=== PATIENT | female | born 1965 | race Caucasian/White ===

== ENCOUNTER → 2018-01-01 13:48 | Outpatient (CLI) | payer OTHER, SELFPAY ==
--- NOTE | 2018-01-01 | DI.CT.S_ITS ---
PROCEDURE: CT ABDOMEN PELVIS WO/W CON INDICATIONS: HEMATURIA AND PELVIC PAIN TECHNIQUE: Optional 5 mm thick noncontrast images acquired from the diaphragm to the symphysis pubis. After the administration of intravenous contrast, 5 mm thick images acquired from the diaphragm to the symphysis pubis after a 10-minute delay. 2 mm thick coronal and sagittal reformats were then performed of the kidneys and ureters. For radiation dose reduction, the following was used: automated exposure control, adjustment of mA and/or kV according to patient size. COMPARISON: None. FINDINGS: Image quality: Excellent. Lung bases: Lung bases are clear. Heart size is normal. Urinary system: Both kidneys are normal in size, without hydronephrosis or nephrolithiasis on pre-contrast images. No perinephric fat stranding. There is normal bilateral renal enhancement. Renal calyces appear normal in morphology when filled with contrast. Opacified portions of both ureters demonstrate normal caliber. Bladder wall thickness is normal. No calcified bladder stones. Other solid organs: Liver is normal in size and enhancement. Gallbladder appears normal. Biliary system is non dilated. Pancreas enhances normally. Spleen is normal in size and enhancement. No adrenal nodules. Peritoneum and bowel: Bowel loops demonstrate normal wall thickness and caliber. No free fluid or air. Nodes and vessels: No retroperitoneal or mesenteric adenopathy by size criteria. Aorta and inferior vena cava are normal in size. Abdominal wall: No ventral hernias. Pelvis: No pathologic free pelvic fluid. No inguinal hernias or adenopathy. Uterus is lobulated, and appears to likely contain multiple uterine fibroids the largest of which is present at the uterine fundus, measuring up to 7.2 cm. Bones: No suspicious bony lesions. No vertebral body compression fractures. IMPRESSION: A urinary tract stone is not found, no urothelial or renal cortical mass is identified. A definite source of hematuria is not seen. Lobulated uterine contour is, suspect multiple moderate sized uterine fibroids are present in the largest fibroid is estimated to measure approximately 7.2 cm at the uterine fundus. Pelvic ultrasound is recommended for more accurate assessment. Dictated by: Chace Alfonso M.D. on 01/01/2018 at 15:04 Approved by: Chace Alfonso M.D. on 01/01/2018 at 15:09
== END ==
PROVIDERS: PCP Family Medicine; Visit Provider Internal Medicine
DX: R31.9 Hematuria, unspecified (principal); R10.2 Pelvic and perineal pain; D25.9 Leiomyoma of uterus, unspecified
CPT/HCPCS: 74178; Q9967

== ENCOUNTER 2018-03-20 22:34 | Emergency (ER) | payer OTHER, MEDICAID, SELFPAY ==
[2018-03-20 22:56] VITALS: BP 136/81; PULSE 75; RESP 16; TEMP 36.9; O2SAT 95; BMI 44.1
--- NOTE | 2018-03-20 23:54 | ED.DENTAL ---
HPI - Dental/Oral General Chief complaint: Dental/Oral Stated complaint: TOOTH PAIN Time Seen by Provider: 03/20/18 23:54 Source: patient Mode of arrival: ambulatory Limitations: no limitations History of Present Illness HPI Narrative: Patient is a 52-year-old female presenting with dental pain at tooth number 51. She always has pain and issues with this tooth. She has started noticing it yesterday she tried to get to her dentist before they close however there are any clothes. She continued to have pain today. No fevers or swelling. She typically gets antibiotics as for it. She will see her dentist next week. Related Data Home Medications Medication Instructions Recorded Confirmed hydrochlorothiazide 25 mg PO QDAY #0 12/20/12 metoprolol tartrate 50 mg PO BID #0 12/20/12 Previous Rx's Medication Instructions Recorded ketorolac 10 mg PO Q6HP PRN #15 tab 09/24/17 amoxicillin 500 mg PO TID #21 cap 03/20/18 ibuprofen 800 mg PO QID PRN #14 tab 03/20/18 Allergies Allergy/AdvReac Type Severity Reaction Status Date / Time thioridazine [From MELLARIL] Allergy Unknown Unverified 10/07/17 11:53 SULFA Allergy Unknown Uncoded 10/07/17 11:53 Review of Systems Review of Systems GENERAL: Denies chills,fever HEENT: See HPI RESPIRATORY: Denies dyspnea, cough, wheezing CARDIOVASCULAR: Denies chest pain, palpitations GASTROINTESTINAL: Denies nausea, vomiting MUSCULOSKELETAL: Denies extremity pain, injury SKIN: No rash, no laceration, no pruritus NEUROLOGIC: Denies weakness, dizziness, headache, numbness 8 point review of systems is negative except for those stated above and HPI PFSH Medical History Hypertension (Acute) Exam Initial Vital Signs Initial Vital Signs: Vital Signs Temperature 98.5 F 03/20/18 22:56 Pulse Rate 75 03/20/18 22:56 Respiratory Rate 16 03/20/18 22:56 Blood Pressure 136/81 03/20/18 22:56 Pulse Oximetry 95 03/20/18 22:56 GENERAL: Well-appearing, well-nourished and in no acute distress. MOUTH: No dental abscess few dental caries CARDIOVASCULAR: peripheral pulses in tact, cap refill <2 sec RESPIRATORY: No respiratory distress, speaks in full sentences without difficulty EXTREMITIES: Normal range of motion, no clubbing or edema. Neurovascularly intact NEUROLOGICAL: Cranial nerves II through XII grossly intact. Normal gait and speech. SKIN: Warm, dry, no petechiae, no rashes or lesions. Course Orders Ordered: Discontinued Medications Amoxicillin ( Trimox 250mg Prepack) 1 bottle MISC SEEINSTR ONE Stop: 03/20/18 23:55 Last Admin: 03/21/18 00:20 Dose: 1 bottle Ibuprofen (Advil) 800 mg PO NOW ONE Stop: 03/20/18 23:55 Last Admin: 03/21/18 00:20 Dose: 800 mg Vital Signs - 8 hr 03/20/18 22:56 03/21/18 00:33 Temperature 98.5 F 98.7 F Pulse Rate 75 70 Respiratory Rate 16 18 Blood Pressure 136/81 130/80 Pulse Oximetry 95 97 Discharge Plan Departure Patient Disposition: Home Clinical Impression: Pain, dental Discharge Date/Time: 03/21/18 00:33 Interventions: ED Discharge Assessment Last Done: 03/21/18 00:33 Instructions: DI for Dental Pain Activity Restrictions/Additional Instructions: *You have been diagnosed with dental pain *Continue to take medications as directed Amoxicillin 500 3 times a day Motrin 100 mg every 8 hr only if needed for pain *Follow up with your primary care provider in 2-3 days *Return to ER if you should have swelling, fever or any new, worsening or concerning symptoms Prescriptions: New amoxicillin 500 mg capsule 500 mg PO TID Qty: 21 RF: 0 ibuprofen 800 mg tablet 800 mg PO QID PRN (Reason: pain) Qty: 14 RF: 0 No Action metoprolol tartrate 50 MG tablet 50 mg PO BID Qty: 0 RF: 0 hydrochlorothiazide 25 MG tablet 25 mg PO QDAY Qty: 0 RF: 0 ketorolac 10 MG tablet 10 mg PO Q6HP PRNQty: 15 RF: 0
[2018-03-21] MEDS: AMOXICILLIN 250 MG PREPACK 1 BOTTLE MISC (00:20)
[2018-03-21] MEDS: IBUPROFEN 400 MG TABLET 800 MG PO (00:20)
[2018-03-21 00:33] VITALS: BP 130/80; PULSE 70; RESP 18; TEMP 37.1; O2SAT 97
--- NOTE | 2018-03-21 16:38 | PC.NURSE ---
Pt called w/ questions regarding which insurance would be billed for her ED visit. Discussed that I did not have access to that information. Offered to transfer call to registration and give business office phone number, pt declined.
== END 2018-03-21 00:33 | disposition home or self-care (01) ==
PROVIDERS: Emergency Provider Emergency Medicine; PCP Family Medicine
DX: K08.89 Other specified disorders of teeth and supporting structures (principal)
CPT/HCPCS: 99282; 99283

== ENCOUNTER 2019-03-03 19:40 | Emergency (ER) | payer OTHER, MEDICAID, SELFPAY ==
[2019-03-03 19:51] VITALS: BP 188/88; PULSE 78; RESP 17; TEMP 36.8; O2SAT 98; BMI 27.4
--- NOTE | 2019-03-03 20:24 | PC.NURSE ---
Dr Cisneros in to inject pain block. pt tolerated well. reports improved pain
[2019-03-03] MEDS: BUPIVACAINE 0.5% W/ EPI (PF) VIAL 30 ML (20:33)
[2019-03-03] MEDS: KETOROLAC 60 MG/2 ML VIAL 30 MG IM (20:33)
[2019-03-03 20:35] VITALS: BP 179/87; PULSE 64; RESP 16; O2SAT 98
--- NOTE | 2019-03-04 03:23 | ED.DENTAL ---
HPI - Dental/Oral General Chief complaint: Dental/Oral Stated complaint: TOOTH ACHE Time Seen by Provider: 03/03/19 19:40 Source: patient Mode of arrival: ambulatory Limitations: no limitations History of Present Illness HPI Narrative: 53F non smoker with history of HTN presents with worsening dental pain. She has an upcoming appointment with her dentist and was just prescribed antibiotic for a suppose dental infection. She has no fever chills nor any facial swelling. Her pain is in the left lower. She denies any injury or trauma. Related Data Home Medications Medication Instructions Recorded Confirmed hydrochlorothiazide 25 mg PO QDAY #0 12/20/12 metoprolol tartrate 50 mg PO BID #0 12/20/12 Previous Rx's Medication Instructions Recorded ketorolac 10 mg PO Q6HP PRN #15 tab 09/24/17 amoxicillin 500 mg PO TID #21 cap 03/20/18 ibuprofen 800 mg PO QID PRN #14 tab 03/20/18 ketorolac 10 mg PO TID PRN #10 tab 03/03/19 Allergies Allergy/AdvReac Type Severity Reaction Status Date / Time thioridazine [From MELLARIL] Allergy Unknown Verified 03/03/19 19:51 SULFA Allergy Unknown Uncoded 10/07/17 11:53 Review of Systems Constitutional Constitutional: Denies chills, Denies fatigue, Denies fever(s), Denies frequent falls, Denies lethargy and Denies weakness Eyes Eyes: Denies change in vision, Denies eye discharge, Denies irritation and Denies loss of vision ENT Ears, Nose, Mouth, and Throat: Denies change in voice, Reports dental pain, Denies dizziness, Denies neck pain, Denies sore throat and Denies throat swelling Cardiovascular Cardiovascular: Denies chest pain, Denies irregular heart rhythm, Denies lightheadedness, Denies palpitations, Denies dyspnea, Denies dyspnea on exertion and Denies orthopnea Respiratory Respiratory: Denies cough, Denies dyspnea, Denies dyspnea on exertion and Denies wheezing Gastrointestinal Gastrointestinal: Denies abdominal pain, Denies change in bowel habits, Denies diarrhea, Denies nausea and Denies vomiting Genitourinary Genitourinary: Denies hematuria, Denies flank pain, Denies urinary incontinence and Denies urinary urgency Musculoskeletal Musculoskeletal: Denies back pain, Denies muscle weakness, Denies neck pain, Denies numbness and Denies tingling Integumentary/Breasts Skin/Breast: Denies pruritus, Denies erythema, Denies rash and Denies wounds Neurologic Neurologic: Denies behavioral changes, Denies confusion, Denies dizziness, Denies frequent falls, Denies loss of vision, Denies numbness, Denies tingling and Denies weakness Psychiatric Psychiatric: Denies anxiety, Denies behavioral changes, Denies confusion, Denies depression, Denies homicidal ideation and Denies suicidal ideation Endocrine Endocrine: Denies fatigue, Denies flushing and Denies palpitations Hematologic/Lymphatic Hematologic/Lymphatic: Denies easy bruising Allergic/Immunologic Allergic/Immunologic: Denies urticaria, Denies throat swelling and Denies wheezing [facility] Medical History Hypertension (Acute) Social History Smoking Status: Unknown if ever smoked Social History Smoking Status: Unknown if ever smoked Exam Narrative Exam Narrative: GEN: AOx3 and in mild distress, rubbing the left side of her lower jaw EYES: Pupils are equal, round, and reactive to light and accommodation. Extraoccular muscles are intact bilaterally. There is no subconjunctival hemorrhage or exudate. ORAL: No facial swelling. No obvious dental fracture or fluctuant mass to suggest abscess CHEST: Lungs are clear to auscultation bilaterally and free of wheezes, rales, or rhonchi. Heart rate is regular rhythm, there are no murmurs, clicks, rubs, or gallops. There is no chest wall tenderness. ABD: Abdomen is soft and nontender. There is no guarding or rebound. Bowel sounds are normal in all 4 quadrants. There is no mass or organomegaly. EXT: Full painless ROM of all extremities with no loss of sensation or strength. SKIN: Warm, pink, and dry. No erythema or rash Initial Vital Signs Initial Vital Signs: Vital Signs Temperature 98.3 F 03/03/19 19:51 Pulse Rate 78 03/03/19 19:51 Respiratory Rate 17 03/03/19 19:51 Blood Pressure 188/88 H 03/03/19 19:51 Pulse Oximetry 98 03/03/19 19:51 Procedures Nerve Block Nerve Block 1: Time out performed: Yes Local Anesthetic: bupivacaine 0.5% and with epi Amount of anesthesia used (mL): 3 Intraoral Nerve Block: inferior alveolar Procedure Successful: Yes Patient Tolerated Procedure: Well Complications: none Course Orders Ordered: Discontinued Medications Ketorolac Tromethamine (Toradol) 30 mg IM NOW ONE Stop: 03/03/19 20:32 Last Admin: 03/03/19 20:33 Dose: 30 mg Documented by: JESUS Vital Signs Vital signs: Vital Signs - 8 hr 03/03/19 20:35 Pulse Rate 64 Respiratory Rate 16 Blood Pressure 179/87 H Pulse Oximetry 98 Discharge Plan Departure Patient Disposition: Home Clinical Impression: Toothache Discharge Date/Time: 03/03/19 20:37 Instructions: DI for Dental Pain Activity Restrictions/Additional Instructions: *You have been diagnosed with [dental pain] *What to do: *Take medications as directed: Your medication has been electronically transmitted to the [facility] in [place] your request. Ketorolac (Toradol) is intended to be taken instead of Motrin. Do not take them at the same time. *Follow up with your primary care provider in 2-3 days, call for an appointment. Let them know you were seen in the Emergency Department and that we ask that you be seen in follow up *Return to ER if you should have any new, worsening or concerning symptoms Prescriptions: New ketorolac 10 mg tablet 10 mg PO TID PRN (Reason: pain) Qty: 10 RF: 0 No Action metoprolol tartrate 50 MG tablet 50 mg PO BID Qty: 0 RF: 0 hydrochlorothiazide 25 MG tablet 25 mg PO QDAY Qty: 0 RF: 0 ketorolac 10 MG tablet 10 mg PO Q6HP PRNQty: 15 RF: 0 amoxicillin 500 mg capsule 500 mg PO TID Qty: 21 RF: 0 ibuprofen 800 mg tablet 800 mg PO QID PRN (Reason: pain) Qty: 14 RF: 0 Referrals: José Miguel Knapp MD [Primary Care Provider] -
== END 2019-03-03 20:37 | disposition home or self-care (01) ==
PROVIDERS: Emergency Provider Emergency Medicine; PCP Family Medicine
DX: K08.89 Other specified disorders of teeth and supporting structures (principal)
CPT/HCPCS: 96372; 99282; 99283; J1885

== ENCOUNTER → 2019-08-12 15:15 | Outpatient (CLI) | payer OTHER, SELFPAY ==
--- NOTE | 2019-08-12 | DI.MG.S_ITS ---
BILATERAL DIGITAL SCREENING MAMMOGRAM 3D/2D WITH CAD: 08/12/2019 CLINICAL: Routine screening. Comparison is made to exams dated: 07/31/2017 mammogram, 01/14/2016 mammogram, and 12/20/2012 mammogram - [facility]. The tissue of both breasts is heterogeneously dense. This may lower the sensitivity of mammography. Current study was also evaluated with a Computer Aided Detection (CAD) system. There is a 0.5 cm oval equal density asymmetry in the left breast middle depth medial region seen on the craniocaudal view only. No other significant masses, calcifications, or other findings are seen in either breast. IMPRESSION: INCOMPLETE: NEEDS ADDITIONAL IMAGING EVALUATION The 0.5 cm oval equal density asymmetry in the left breast is indeterminate. Additional views with possible ultrasound are recommended. This exam was interpreted at Station ID: [id number]. NOTE: For mammograms, a report in lay terms will be sent to the patient. Approximately 15% of breast malignancies will not be visualized mammographically. In the management of a palpable breast mass, a negative mammogram must not discourage biopsy of a clinically suspicious lesion. Electronically Signed By: Hans lofton/christina:08/12/2019 18:09:09 letter sent: Additional Imaging Needed ACR BI-RADS Category 0: Incomplete [id number]
== END ==
PROVIDERS: PCP Family Medicine; Referring Provider Family Medicine; Visit Provider Internal Medicine
DX: Z12.31 Encounter for screening mammogram for malignant neoplasm of breast (principal)
CPT/HCPCS: 77063; 77067

== ENCOUNTER → 2020-01-02 13:05 | Outpatient (CLI) | payer OTHER, SELFPAY ==
--- NOTE | 2020-01-02 | DI.MG.S_ITS ---
UNILATERAL LEFT DIGITAL DIAGNOSTIC MAMMOGRAM 3D/2D WITH ADDITIONAL VIEWS: 01/02/2020 CLINICAL: Additional evaluation requested from prior study. Comparison is made to exams dated: 08/12/2019 mammogram, 07/31/2017 mammogram, and 01/14/2016 mammogram - [facility]. The tissue of left breast is heterogeneously dense. This may lower the sensitivity of mammography. There is an oval low density asymmetry with an indistinct and circumscribed margin in the left breast anterior depth medial region seen on the craniocaudal view only. No other significant masses or calcifications are seen in the breast. IMPRESSION: INCOMPLETE: NEEDS ADDITIONAL IMAGING EVALUATION The oval low density asymmetry in the left breast is indeterminate. An ultrasound is recommended. This exam was interpreted at Station ID: [id number]. NOTE: For mammograms, a report in lay terms will be sent to the patient. Approximately 15% of breast malignancies will not be visualized mammographically. In the management of a palpable breast mass, a negative mammogram must not discourage biopsy of a clinically suspicious lesion. Electronically Signed By: Norman bustos/christina:01/02/2020 13:34:55 ACR BI-RADS Category 0: Incomplete [id number]
--- NOTE | 2020-01-02 | DI.US.S_ITS ---
LIMITED ULTRASOUND OF LEFT BREAST: 01/02/2020 CLINICAL: Patient returns today to evaluate a focal asymmetry in the left breast. Comparison is made to exams dated: 01/02/2020 mammogram, 08/12/2019 mammogram, 07/31/2017 mammogram, and 01/14/2016 mammogram - [facility]. Color flow and real-time ultrasound of the left breast inner aspect were performed on the areas of interest. There is a 0.4 cm x 0.3 cm x 0.4 cm oval cyst in the left breast at 9 o'clock middle depth. This oval cyst is hypoechoic with a well-defined boundary, internal echoes, and posterior acoustic enhancement. This likely correlates with mammography findings. Color flow imaging demonstrates that there is no vascularity present. IMPRESSION: PROBABLY BENIGN The 0.4 cm x 0.3 cm x 0.4 cm oval cyst in the left breast is consistent with a complicated cyst and is probably benign. Follow-up mammogram and ultrasound in 3 months is recommended. A follow-up mammogram and an ultrasound in 6 months is recommended to demonstrate stability. This exam was interpreted at Station ID: [id number]. Electronically Signed By: Norman Pittman M.D. ddpat/:01/02/2020 15:02:14 letter sent: Followup Recommended Ultrasound BI-RADS: 3 Probably benign
== END ==
PROVIDERS: PCP Internal Medicine; Referring Provider Internal Medicine; Visit Provider Internal Medicine
DX: R92.8 Other abnormal and inconclusive findings on diagnostic imaging of breast (principal); N60.02 Solitary cyst of left breast
CPT/HCPCS: 76642; 77065; G0279

== ENCOUNTER → 2020-01-06 13:03 | Outpatient (CLI) | payer OTHER, SELFPAY ==
--- NOTE | 2020-01-06 | DI.US.S_ITS ---
PROCEDURE: US ABDOMEN LIMITED INDICATIONS: ABN LIVER FUNC TEST TECHNIQUE: Real-time focused scanning was performed of the abdomen, with image documentation. COMPARISON: None. FINDINGS: Liver is diffusely increased in echogenicity. No focal hepatic abnormalities identified. Normal hepatic size. No gallstones identified. Normal gallbladder wall. No pericholecystic fluid. Negative sonographic Jama sign. No biliary dilatation. Pancreas not visualized. IMPRESSION: Increased hepatic echogenicity noted possibly related to hepatic steatosis but other sources of hepatocellular disease cannot be excluded. Recommend clinical correlation. Dictated by: Robinson FULLER Interpreted: Chace Alfonso MD on 01/06/2020 at 14:31 Approved by: Chace Alfonso M.D. on 01/06/2020 at 15:52
== END ==
PROVIDERS: PCP Internal Medicine; Referring Provider Internal Medicine; Visit Provider Internal Medicine
DX: R94.5 Abnormal results of liver function studies (principal)
CPT/HCPCS: 76705

== ENCOUNTER 2020-04-13 11:06 | Emergency (ER) | payer OTHER, MEDICAID, SELFPAY ==
[2020-04-13 11:08] VITALS: BP 216/97; PULSE 71; RESP 15; TEMP 36.9; O2SAT 99; BMI 44.2
--- NOTE | 2020-04-13 11:58 | ED_ITS ---
HPI - Dental/Oral <BRYAN Contreras- - Last Filed: 04/13/20 14:54> General Chief complaint: Dental/Oral Stated complaint: infected tooth Time Seen by Provider: 04/13/20 11:14 Source: patient Mode of arrival: Ambulatory Limitations: no limitations History of Present Illness HPI Narrative: The patient is a 54-year-old female nonsmoker with history of hypertension and dental pain who presents with a chief complaint a possible dental infection. She states that she had 1 tooth removed, has a broken tooth right next to it. She started having pain redness and swelling about site last night. She denies any fevers nausea vomiting or diarrhea. She has not taken anything for pain or taking ice as she is concerned about her fatty liver disease. Related Data Home Medications Medication Instructions Recorded Confirmed hydrochlorothiazide 25 mg PO QDAY #0 12/20/12 metoprolol tartrate 50 mg PO BID #0 12/20/12 Previous Rx's Medication Instructions Recorded ketorolac 10 mg PO Q6HP PRN #15 tab 09/24/17 amoxicillin 500 mg PO TID #21 cap 03/20/18 ibuprofen 800 mg PO QID PRN #14 tab 03/20/18 ketorolac 10 mg PO TID PRN #10 tab 03/03/19 ketorolac 10 mg PO TID #10 tab 04/13/20 penicillin V potassium 500 mg PO QID #40 tab 04/13/20 Allergies Allergy/AdvReac Type Severity Reaction Status Date / Time thioridazine [From MELLARIL] Allergy Unknown Verified 04/13/20 11:12 SULFA Allergy Unknown Uncoded 10/07/17 11:53 Review of Systems <KARMA Contreras - Last Filed: 04/13/20 14:54> Review of Systems Narrative: GENERAL: Denies chills, fatigue, malaise, fever, sweats. HEENT: See HPI RESPIRATORY: Denies dyspnea, cough, wheezing, hemoptysis, sputum. CARDIOVASCULAR: Denies chest pain, palpitations, orthopnea, edema, GASTROINTESTINAL: Denies nausea, vomiting, abdominal pain, diarrhea, constipation, melena. : Denies dysuria, frequency, incontinence, hematuria, urinary retention. MUSCULOSKELETAL: denies weakness, joint pain, or bony pain SKIN: Denies rash, skin lesions, or other NEUROLOGIC: Denies weakness, headache, numbness, change in speech, confusion, seizures, incoordination. PSYCHIATRIC: No concerning psychosocial issues. 12 point review of systems is negative except for those stated above Patient History <Jazmyne LONDON Moore - Last Filed: 04/13/20 14:54> Medical History (Updated 04/14/20 @ 03:28 by Juhi Lopez MD) Fatty liver (Acute) Hypertension (Acute) Social History Smoking Status: Unknown if ever smoked Smoking Status: Unknown if ever smoked alcohol intake frequency: holidays/special occasions only Substance Use Type: does not use Exam <Jazmyne LONDON Moore - Last Filed: 04/13/20 14:54> Narrative Exam Narrative: GENERAL: This is a well-nourished, well-developed patient, in no acute distress HEAD: Atraumatic. Normocephalic. No temporal or scalp tenderness. EYES: Pupils equal round and reactive. Extraocular motions intact. No scleral icterus. No injection or drainage. ENT: Nose without bleeding, purulent drainage or septal hematoma. Throat without erythema, tonsillar hypertrophy or exudate. Uvula midline. Airway patent. Poor dentition noted. Erythema foot swelling, pain to palpation around left lower molar which is broke NECK: Trachea midline. No JVD or lymphadenopathy. Supple, nontender, no meningeal signs. CARDIOVASCULAR: Regular rate and rhythm RESPIRATORY: Clear to auscultation. Breath sounds equal bilaterally. No wheezes, rales, or rhonchi. No cough. No increased respiratory effort. No accessory muscle use. GASTROINTESTINAL: Abdomen soft, non-tender, nondistended. No hepato- splenomegaly, or palpable masses. No guarding. Active bowel sounds all 4 quadrants. NEURO: AOx3. Interactive, age appropriate SKIN: No rash or erythema on visible skin Initial Vital Signs Initial Vital Signs: Vital Signs Temperature 98.4 F 04/13/20 11:08 Pulse Rate 71 04/13/20 11:08 Respiratory Rate 15 04/13/20 11:08 Blood Pressure 216/97 H 04/13/20 11:08 Pulse Oximetry 99 04/13/20 11:08 <Julia Fontana DO - Last Filed: 04/15/20 07:04> Initial Vital Signs Initial Vital Signs: Vital Signs Temperature 98.4 F 04/13/20 11:08 Pulse Rate 71 04/13/20 11:08 Respiratory Rate 15 04/13/20 11:08 Blood Pressure 216/97 H 04/13/20 11:08 Pulse Oximetry 99 04/13/20 11:08 Scores <LONDON Cnotreras - Last Filed: 04/13/20 14:54> GCS Cesario coma scale eye opening: Spontaneous [place] coma scale verbal response: Orientated [place] coma scale motor response: Obey commands Cesario coma scale total score: 15 Course <LONDON Contreras - Last Filed: 04/13/20 14:54> Orders Ordered: Discontinued Medications Ketorolac Tromethamine (Toradol) 30 mg IM NOW ONE Stop: 04/13/20 11:53 Last Admin: 04/13/20 12:05 Dose: 30 mg Documented by: ARCHANA Vital Signs Vital signs: Vital Signs - 8 hr 04/13/20 11:08 04/13/20 12:11 Temperature 98.4 F Pulse Rate 71 63 Respiratory Rate 15 16 Blood Pressure 216/97 H 171/73 H Pulse Oximetry 99 98 <Julia Fontana DO - Last Filed: 04/15/20 07:04> Orders Ordered: Discontinued Medications Ketorolac Tromethamine (Toradol) 30 mg IM NOW ONE Stop: 04/13/20 11:53 Last Admin: 04/13/20 12:05 Dose: 30 mg Documented by: ARCHANA Vital Signs Vital signs: Vital Signs - 8 hr 04/13/20 11:08 04/13/20 12:11 Temperature 98.4 F Pulse Rate 71 63 Respiratory Rate 15 16 Blood Pressure 216/97 H 171/73 H Pulse Oximetry 99 98 MDM - Dental/Oral <LONDON Contreras - Last Filed: 04/13/20 14:54> MDM Narrative Medical decision making narrative: The patient is a 54-year-old female who pr esents with a chief complaint of likely dental infection. Patient have dental infection exam, will treat with Pen-VK. Encouraged follow-up with primary care provider as well as dentist which she is trying to schedule. Patient was given Toradol and felt much improved, there for small prescription prescribed. Encouraged ice, soft foods etcetera. Patient has no questions or concerns upon discharge and states understanding return precautions of any acute concerns, signs of systemic illness as well as follow-up care with her primary care provider and dentist. Discharge Plan Departure Patient Disposition: Home Clinical Impression: Dental infection Discharge Date/Time: 04/13/20 12:30 Instructions: Tooth Abscess, DI for Dental Pain Activity Restrictions/Additional Instructions: Thank you for trusting us with your care today. I sent 2 prescriptions to [facility] pharmacy, 1 antibiotic and 1 for pain As discussed, please probiotic or yogurt with the antibiotic I have given you a prescription of Toradol. This is an NSAID. Do not combine it with other NSAIDs such as Aleve or ibuprofen. I suggest taking it with some food, as it can irritate your stomach. Please follow-up with primary care provider well as dentist in the next few days. Please come back to emergency department for any acute concerns such as high fevers, inability keep down fluids etcetera Prescriptions: New penicillin V potassium 500 mg tablet 500 mg PO QID Qty: 40 RF: 0 ketorolac 10 mg tablet 10 mg PO TID Qty: 10 RF: 0 No Action metoprolol tartrate 50 MG tablet 50 mg PO BID Qty: 0 RF: 0 hydrochlorothiazide 25 MG tablet 25 mg PO QDAY Qty: 0 RF: 0 ketorolac 10 MG tablet 10 mg PO Q6HP PRNQty: 15 RF: 0 amoxicillin 500 mg capsule 500 mg PO TID Qty: 21 RF: 0 ibuprofen 800 mg tablet 800 mg PO QID PRN (Reason: pain) Qty: 14 RF: 0 ketorolac 10 mg tablet 10 mg PO TID PRN (Reason: pain) Qty: 10 RF: 0 Referrals: Tamela Harris [Primary Care Provider] - <Julia Fontana DO - Last Filed: 04/15/20 07:04> Cosign ED Attending Silvestreature Attestation: I was immediately available in the department for consultation. Documentation has been reviewed. I agree with assessment and plan.
[2020-04-13] MEDS: KETOROLAC 60 MG/2 ML VIAL 30 MG IM (12:05)
[2020-04-13 12:11] VITALS: BP 171/73; PULSE 63; RESP 16; O2SAT 98
== END 2020-04-13 12:30 | disposition home or self-care (01) ==
PROVIDERS: Emergency Provider Nurse Practitioner Family; PCP Internal Medicine
DX: K04.7 Periapical abscess without sinus (principal)
CPT/HCPCS: 96372; 99283; J1885

== ENCOUNTER 2020-04-14 02:12 | Emergency (ER) | payer OTHER, MEDICAID, SELFPAY ==
[2020-04-14 02:21] VITALS: BP 150/72; PULSE 83; RESP 16; TEMP 37.2; O2SAT 94; BMI 44.2
--- NOTE | 2020-04-14 02:29 | ED_ITS ---
HPI - Nausea/Vomiting/Diarrhea General Chief complaint: Nausea/Vomiting/Diarrhea Stated complaint: nausea, unable to take meds Time Seen by Provider: 04/14/20 02:29 Source: patient Mode of arrival: Ambulatory Limitations: no limitations History of Present Illness HPI Narrative: 54-year-old woman presents for the 2nd time in 24 hours with left lower quadrant tooth pain. She was seen earlier today given a prescription for oral Toradol as well as antibiotics. Unfortunately when she got home the IM Toradol wore off the pain increased to the point that she was at 2 nauseated to take any of her pain medications or antibiotics and her pain and nausea is spiraling in the wrong direction. She presents again requesting anesthetic injection for the pain and a shot of antibiotics so that she does not need to worry about taking the antibiotics orally. Related Data Home Medications Medication Instructions Recorded Confirmed hydrochlorothiazide 25 mg PO QDAY #0 12/20/12 metoprolol tartrate 50 mg PO BID #0 12/20/12 Previous Rx's Medication Instructions Recorded ketorolac 10 mg PO Q6HP PRN #15 tab 09/24/17 amoxicillin 500 mg PO TID #21 cap 03/20/18 ibuprofen 800 mg PO QID PRN #14 tab 03/20/18 ketorolac 10 mg PO TID PRN #10 tab 03/03/19 ketorolac 10 mg PO TID #10 tab 04/13/20 penicillin V potassium 500 mg PO QID #40 tab 04/13/20 Allergies Allergy/AdvReac Type Severity Reaction Status Date / Time thioridazine [From MELLARIL] Allergy Unknown Verified 04/13/20 11:12 SULFA Allergy Unknown Uncoded 10/07/17 11:53 Review of Systems Review of Systems Narrative: Pertinent positive and negative findings as per HPI Remainder of review of systems is otherwise unremarkable for Constitutional: Fevers, chills, weakness ENT: No sore throat, neck pain, ear pain CV: Chest pain, palpitations, dyspnea on exertion Respiratory: Cough, wheeze, dyspnea GI: Nausea, vomiting, diarrhea, : Dysuria, hematuria, flank pain Patient History Medical History Fatty liver (Acute) Hypertension (Acute) Social History Smoking Status: Unknown if ever smoked Smoking Status: Unknown if ever smoked alcohol intake frequency: holidays/special occasions only Substance Use Type: does not use Exam Narrative Exam Narrative: General: Alert appropriate in no acute distress Oral exam: Tooth #20 is fractured and tooth #19. Is missing. No obvious abscess. Respiratory: Able to speak in full sentences, no obvious respiratory distress Skin: No obvious rashes, warm and dry Neurologic: Grossly intact no obvious asymmetries or abnormalities Psych: appropriate insight and affect, cooperative Initial Vital Signs Initial Vital Signs: Vital Signs Temperature 98.9 F 04/14/20 02:21 Pulse Rate 83 04/14/20 02:21 Respiratory Rate 16 04/14/20 02:21 Blood Pressure 150/72 H 04/14/20 02:21 Pulse Oximetry 94 04/14/20 02:21 [facility] Procedure Name of Procedure: dental block Side (if applicable): left Location: tooth #19 Technique/Description of procedure performed: periosteal injection 3cc .5%bupivaine with epi Patient tolerated procedure: Well Complications: none Course Orders Ordered: Discontinued Medications Ondansetron HCl (Zofran Odt) 4 mg SL NOW ONE Stop: 04/14/20 02:36 Last Admin: 04/14/20 02:45 Dose: 4 mg Documented by: EDIL Penicillin G Benzathine (Bicillin L-A) 1,200,000 unit IM NOW ONE Stop: 04/14/20 02:36 Last Admin: 04/14/20 02:45 Dose: 1,200,000 unit Documented by: KGLULIAG Vital Signs Vital signs: Vital Signs - 8 hr 04/14/20 02:21 Temperature 98.9 F Pulse Rate 83 Respiratory Rate 16 Blood Pressure 150/72 H Pulse Oximetry 94 MDM - Nausea/Vomiting/Diarrhea MDM Narrative Medical decision making narrative: Recurrent dental pain making nausea so bad that she is unable to take any pain medications or antibiotics to treat the dental pain. She requests a local dental block and a shot of penicillin. Both of these are facilitated after Zofran 0 DT is given to help with the nausea. Patient is safe for home discharge Discharge Plan Departure Patient Disposition: Home Clinical Impression: Dental infection Instructions: DI for Dental Pain Activity Restrictions/Additional Instructions: Sorry your hurting so much that you needed to return. With this visit your given Zofran to help with the nausea. you had a shot of penicillin G which will last for about 2 weeks. You do not need any additional antibiotics at this point I did a dental block with 3 cc of 0.5% bupivacaine with epinephrine. I hope this will last for her good at least 6 hours. Please make sure you are careful with eating and talking to the you do not bite your lip or tongue. Please follow-up with your dentist as soon as your able. I wish you well Prescriptions: No Action metoprolol tartrate 50 MG tablet 50 mg PO BID Qty: 0 RF: 0 hydrochlorothiazide 25 MG tablet 25 mg PO QDAY Qty: 0 RF: 0 ketorolac 10 MG tablet 10 mg PO Q6HP PRNQty: 15 RF: 0 amoxicillin 500 mg capsule 500 mg PO TID Qty: 21 RF: 0 ibuprofen 800 mg tablet 800 mg PO QID PRN (Reason: pain) Qty: 14 RF: 0 ketorolac 10 mg tablet 10 mg PO TID PRN (Reason: pain) Qty: 10 RF: 0 penicillin V potassium 500 mg tablet 500 mg PO QID Qty: 40 RF: 0 ketorolac 10 mg tablet 10 mg PO TID Qty: 10 RF: 0 Referrals: Tamela Harris [Primary Care Provider] -
[2020-04-14] MEDS: PENICILLIN G BENZATHINE 1,200,000 UNIT/2 ML SYRINGE 1200000 UNIT IM (02:45)
[2020-04-14] MEDS: ONDANSETRON 4 MG ODT SL (02:45)
[2020-04-14] MEDS: BUPIVACAINE 0.5% W/ EPI (PF) 30 ML VIAL (02:45)
[2020-04-14 03:47] VITALS: BP 180/78; PULSE 84; RESP 17; O2SAT 96
== END 2020-04-14 03:48 | disposition home or self-care (01) ==
PROVIDERS: Emergency Provider Emergency Medicine; PCP Internal Medicine
DX: K04.7 Periapical abscess without sinus (principal); R11.2 Nausea with vomiting, unspecified
CPT/HCPCS: 64450; 96372; 99283; J0561

== ENCOUNTER 2022-01-16 01:44 | Emergency (ER) | payer OTHER, MEDICAID, SELFPAY ==
[2022-01-16 02:00] VITALS: BP 167/72; PULSE 108; RESP 22; TEMP 38.1; O2SAT 97; BMI 46.3
[2022-01-16 02:06] VITALS: O2SAT 97
--- NOTE | 2022-01-16 02:26 | ED.SKABFB ---
HPI - Skin/Abscess/Foreign Bdy General Chief complaint: Skin/Abscess/Foreign Body Stated complaint: left leg infection x2 months Time Seen by Provider: 01/16/22 02:24 Source: patient Mode of arrival: Ambulatory Limitations: no limitations History of Present Illness HPI narrative: 56-year-old female nonsmoker with BMI 46, history of diabetes and prior skin infections presents with a chief complaint of left lower extremity pain, swelling and redness with fever over the past few days. She had been seen and evaluated about a month or 2 ago and was started on doxycycline. She states that her symptoms improved tremendously but after the 5 day course of antibiotics they have slowly returned. She denies any shaking chills nor nausea or vomiting. She has no runny nose, sore throat or cough. She has no chest pain or shortness of breath. Related Data Home Medications Medication Instructions Recorded Confirmed hydrochlorothiazide 25 mg tablet 25 mg PO QDAY ##0 12/20/12 metoprolol tartrate 50 mg tablet 50 mg PO BID ##0 12/20/12 Previous Rx's Medication Instructions Recorded ketorolac 10 mg tablet 10 mg PO Q6HP PRN #15 tabs 09/24/17 amoxicillin 500 mg capsule 500 mg PO TID #21 caps 03/20/18 ibuprofen 800 mg tablet 800 mg PO QID PRN pain #14 tabs 03/20/18 ketorolac 10 mg tablet 10 mg PO TID PRN pain #10 tabs 03/03/19 ketorolac 10 mg tablet 10 mg PO TID #10 tabs 04/13/20 penicillin V potassium 500 mg 500 mg PO QID #40 tabs 04/13/20 tablet doxycycline hyclate 100 mg tablet 100 mg PO BID #20 tabs 01/16/22 Allergies Allergy/AdvReac Type Severity Reaction Status Date / Time thioridazine [From MELLARIL] Allergy Unknown Verified 04/13/20 11:12 SULFA Allergy Unknown Uncoded 10/07/17 11:53 Review of Systems Review of Systems Narrative: GENERAL: See HPI HEENT: Denies sinus pain, ear pain, sore throat, difficulty swallowing, dizziness. RESPIRATORY: Denies dyspnea, cough, wheezing, hemoptysis, sputum. CARDIOVASCULAR: Denies chest pain, palpitations, orthopnea, edema, GASTROINTESTINAL: Denies nausea, vomiting, abdominal pain, diarrhea, constipation, melena. : Denies dysuria, frequency, incontinence, hematuria, urinary retention. MUSCULOSKELETAL: denies weakness, joint pain, or bony pain SKIN: See HPI NEUROLOGIC: Denies weakness, headache, numbness, change in speech, confusion, seizures, incoordination. PSYCHIATRIC: No concerning psychosocial issues. 12 point review of systems is negative except for those stated above Patient History Medical History (Updated 01/16/22 @ 03:27 by Kevin Cisneros DO) Fatty liver Hypertension Social History Smoking Status: Never smoker Smoking Status: Never smoker alcohol intake frequency: holidays/special occasions only Substance Use Type: does not use Exam Narrative Exam Narrative: GENERAL: [56] year old patient appears stated age. Well-developed patient, in mild distress. HEAD: Atraumatic. Normocephalic. EYES: Pupils equal round and reactive. Extraocular motions intact. No scleral icterus. No injection or drainage. ENT: Nose without bleeding, purulent drainage. Throat without erythema, tonsillar hypertrophy or exudate. Airway patent. NECK: Trachea midline. Non tender CARDIOVASCULAR: Tachycardic but regular rhythm without murmurs, gallops, or rubs. RESPIRATORY: Clear to auscultation. Breath sounds equal bilaterally. No wheezes, rales, or rhonchi. GASTROINTESTINAL: Abdomen soft, non-tender, nondistended. EXTREMITIES: Bilateral lower extremity edema, left greater than right with circumferential erythema and warmth BACK: Nontender without deformity or crepitance. No flank tenderness. NEURO: AOx3. SKIN: No rash or erythema of visible areas Initial Vital Signs Initial Vital Signs: Vital Signs Temperature 100.6 F H 01/16/22 02:00 Pulse Rate 108 H 01/16/22 02:00 Respiratory Rate 22 01/16/22 02:00 Blood Pressure 167/72 H 01/16/22 02:00 Pulse Oximetry 97 01/16/22 02:00 Oxygen Delivery Method 01/16/22 02:00 Course Orders Ordered: ED Orders 01/16/22 02:39 Complete Blood Count AUTO DIFF Stat Comprehensive Metabolic Panel Stat Lactate (Lactic Acid) Stat 01/16/22 02:55 Blood Culture Stat Sodium Chloride (Normal Saline 0.9%) 1,000 mls @ 1,000 mls/hr IV BOLUS ONE Stop: 01/16/22 03:32 Last Admin: 01/16/22 02:41 Dose: 1,000 mls/hr Documented By: HENNY Discontinued Medications Doxycycline Hyclate (Doxycycline Hyclate 100 Mg Tablet) 100 mg PO NOW ONE Stop: 01/16/22 03:26 Ketorolac Tromethamine (Ketorolac 30 Mg/Ml Vial) 15 mg IV NOW ONE Stop: 01/16/22 02:34 Last Admin: 01/16/22 02:41 Dose: 15 mg Documented By: HENNY Reevaluation(s) Reevaluation #1: Patient has significant improvement after a brief rest initially and perhaps some fluids. Blood pressure down into the 120s, heart rate into the 80s and 90s, respirations into the teens. Labs are very reassuring, no indication for admission. Return precautions discussed and questions answered to her apparent satisfaction Vital Signs Vital signs: Vital Signs - 8 hr 01/16/22 02:00 01/16/22 02:06 01/16/22 02:32 Temperature 100.6 F H Pulse Rate 108 H Respiratory Rate 22 Blood Pressure 167/72 H Pulse Oximetry 97 97 95 Oxygen Delivery Method Room Air 01/16/22 03:21 Temperature Pulse Rate 91 H Respiratory Rate 18 Blood Pressure 123/56 L Pulse Oximetry 99 Oxygen Delivery Method Room Air MDM - Skin/Abscess/Foreign Bdy Lab Data Result diagrams: 01/16/22 02:39 01/16/22 02:39 Labs: Lab Results 01/16/22 01/16/22 01/16/22 Range/Units 02:39 02:39 02:39 WBC 7.7 (4.5-11.0) X10^3/uL RBC 4.81 (4.0-5.2) X10^6/uL Hgb 13.6 (12.0-16.0) g/dL Hct 39.8 (36-46) % MCV 82.8 (80-100) fL MCH 28.2 (26-34) PG MCHC 34.1 (30-36) % RDW 15.1 H (11.6-14.8) % Plt Count 238 (150-400) X10^3/uL Neut % (Auto) 89.6 H (50-75) % Lymph % (Auto) 5.5 L (25-40) % [place] % (Auto) 4.0 (3-14) % Eos % (Auto) 0.5 L (2-4) % Baso % (Auto) 0.4 (0-2) % Neut # (Auto) 6900 (8317-9653) /uL Lymph # (Auto) 400 L (9950-7743) /uL [place] # (Auto) 300 (0-900) /uL Eos # (Auto) 0 (0-450) /uL Baso # (Auto) 0 (0-100) /uL Sodium 138 (137-145) mmol/L Potassium 4.1 (3.4-5.1) mmol/L Chloride 100 (98-107) mmol/L Carbon Dioxide 29 (22-32) mmol/L BUN 10 (7-17) mg/dL Creatinine 0.80 (0.52-1.04) mg/dL Estimated GFR > 60 (>60) mL/min BUN/Creatinine Ratio 12.5 (6-22) Glucose 188 H (70-100) mg/dL Lactate 1.9 (0.7-2.1) mmol/L Calcium 9.5 (8.4-10.2) mg/dL Total Bilirubin 1.2 (0.2-1.3) mg/dL AST 27 (14-36) IU/L ALT 37 H (<35) IU/L Alkaline Phosphatase 100 (38-126) U/L Total Protein 7.9 (6.3-8.2) g/dL Albumin 4.4 (3.5-5.0) g/dL Globulin 3.5 (1.7-4.1) g/dL Albumin/Globulin Ratio 1.3 (1.0-2.8) Discharge Plan Departure Patient Disposition: Home Clinical Impression: Cellulitis Instructions: DI for Cellulitis -- Adult Activity Restrictions/Additional Instructions: *You have been diagnosed with [left lower extremity cellulitis] *What to do: *Please continue to take your regular medications as directed. [ x] New medication prescriptions sent to your pharmacy: [ [facility]] [ ] New medication written as a paper prescription [ ] No new medications given *Please follow up with your primary care provider in 2-3 days, call for an appointment. Let them know you were seen in the Emergency Department and that we ask that you be seen in follow up. We will electronically transmit a record of today's note if your PCP is in our system *If you do not have a primary care provider please contact the [facility] Resource line at [phone]. They will ask some questions about your medical history and help get you set up with a doctor in the community. *Return to Emergency Department if you should have any new, worsening or concerning symptoms, such as [fever greater than 101 F, shaking chills, worsening pain, persistent vomiting or other bothersome symptoms] Prescriptions: New doxycycline hyclate 100 mg tablet 100 mg PO BID Qty: 20 0RF No Action metoprolol tartrate 50 MG tablet 50 mg PO BID Qty: 0 hydrochlorothiazide 25 MG tablet 25 mg PO QDAY Qty: 0 ketorolac 10 MG tablet 10 mg PO Q6HP PRNQty: 15 0RF amoxicillin 500 mg capsule 500 mg PO TID Qty: 21 0RF ibuprofen 800 mg tablet 800 mg PO QID PRN (Reason: pain) Qty: 14 0RF ketorolac 10 mg tablet 10 mg PO TID PRN (Reason: pain) Qty: 10 0RF penicillin V potassium 500 mg tablet 500 mg PO QID Qty: 40 0RF ketorolac 10 mg tablet 10 mg PO TID Qty: 10 0RF Referrals: Tamela Harris MD [Primary Care Provider] -
[2022-01-16 02:32] VITALS: O2SAT 95
[2022-01-16] MEDS: KETOROLAC 30 MG/ML VIAL 15 MG IV (02:41)
[2022-01-16] MEDS: SODIUM CHLORIDE 0.9% 1,000 ML 1000 ML IV (02:41)
[2022-01-16 02:58] LABS: Lactate (Lactic Acid) 1.9 mmol/L (0.7-2.1)
[2022-01-16 03:00] LABS: Alanine Aminotransferase 37 IU/L (<35); Albumin 4.4 g/dL (3.5-5.0); Albumin Globulin Ratio 1.3 (1.0-2.8); Alkaline Phosphatase 100 U/L (38-126); Aspartate Aminotransferase 27 IU/L (14-36); BUN Creatinine Ratio 12.5 (6-22); Bilirubin Total 1.2 mg/dL (0.2-1.3); Blood Urea Nitrogen 10 mg/dL (7-17); Calcium 9.5 mg/dL (8.4-10.2); Carbon Dioxide 29 mmol/L (22-32); Chloride 100 mmol/L (98-107); Estimated Glomerular Filt Rate > 60 mL/min (>60); Globulin 3.5 g/dL (1.7-4.1); Glucose 188 mg/dL (70-100); HEMOLYSIS < 15 (0-50); Potassium 4.1 mmol/L (3.4-5.1); Sodium 138 mmol/L (137-145); Total Protein 7.9 g/dL (6.3-8.2)
[2022-01-16 03:12] LABS: Add Manual Diff / Slide Review NO; Basophils Absolute Auto 0 /uL (0-100); Basophils Percent Auto 0.4 % (0-2); Eosinophils Absolute Auto 0 /uL (0-450); Eosinophils Percent Auto 0.5 % (2-4); Hematocrit 39.8 % (36-46); Hemoglobin 13.6 g/dL (12.0-16.0); Lymphocytes Absolute Auto 400 /uL (1100-4500); Lymphocytes Percent Auto 5.5 % (25-40); Mean Corpuscular HGB Conc 34.1 % (30-36); Mean Corpuscular Hemoglobin 28.2 PG (26-34); Mean Corpuscular Volume 82.8 fL (80-100); Monocytes Absolute Auto 300 /uL (0-900); Neutrophils Absolute Auto 6900 /uL (1500-7000); Neutrophils Percent Auto 89.6 % (50-75); Platelet Count 238 X10^3/uL (150-400); Red Blood Cell Count 4.81 X10^6/uL (4.0-5.2); Red Cell Distribution Width 15.1 % (11.6-14.8); White Blood Cell Count 7.7 X10^3/uL (4.5-11.0)
[2022-01-16 03:21] VITALS: BP 123/56; PULSE 91; RESP 18; O2SAT 99
[2022-01-16] MEDS: DOXYCYCLINE HYCLATE 100 MG TABLET PO (03:45)
[2022-01-16 03:52] VITALS: BP 137/60; PULSE 100; RESP 20; O2SAT 96
== END 2022-01-16 03:55 | disposition home or self-care (01) ==
PROVIDERS: Emergency Provider Emergency Medicine; PCP Internal Medicine
DX: L03.116 Cellulitis of left lower limb (principal)
CPT/HCPCS: 36415; 80053; 83605; 85025; 87040; 96361; 96374; 99284; J1885

== ENCOUNTER 2023-09-19 18:14 | Emergency (ER) | payer OTHER, SELFPAY ==
[2023-09-19 18:29] VITALS: PULSE 81; O2SAT 97
[2023-09-19 18:30] VITALS: BP 169/77; PULSE 78; O2SAT 97
[2023-09-19 18:32] VITALS: BP 169/77; PULSE 77; RESP 24; TEMP 36.9; O2SAT 94; BMI 45.4
[2023-09-19 20:17] VITALS: BP 147/67; PULSE 88; RESP 14; TEMP 37; O2SAT 98
[2023-09-19 21:01] LABS: Appearance Urine UA CLOUDY; Bilirubin Urine UA NEGATIVE (NEGATIVE); Color Urine UA RED; Glucose Urine UA 2+ g/dL (Negative); Ketones Urine UA NEGATIVE (NEGATIVE); Leukocyte Esterase Urine UA TRACE (NEGATIVE); Nitrite Urine UA NEGATIVE (Negative); Occult Blood Urine UA 3+ (Negative); Protein Urine UA 2+ (Negative)
[2023-09-19 21:03] LABS: pH Urine UA 7.5 (4.5-8.0)
[2023-09-19 21:04] LABS: Bacteria Urine None Seen; Culture Indicated Urine Specimen Cultured; RBC Urine >100/HPF (0-5/HPF); Squamous Epithelial Cell Urine 1-5 /HPF (0-5/HPF); Urine Volume 10mL (spun); WBC Urine 10-30/HPF (0-5/HPF)
--- NOTE | 2023-09-20 00:52 | ED_ITS ---
HPI - Extremity Injury (Lower) General Chief Complaint: Extremity Injury, Lower Stated Complaint: pain in lower lt abd, difficulty breathing Time Seen by Provider: 09/19/23 20:48 Source: patient Mode of arrival: Ambulatory History of Present Illness HPI Narrative: Patient 58-year-old female without significant past medical history presenting today with pain in her abdomen. She reports that she has some urinary incontinence this morning she was trying to get to the restroom she could not quite get there but she was wearing a depends any way. While she was straining to the restroom she may have tripped and then she was upset that she had a little bit of an accident so she kept her pants. She reports that similar in her abdomen and groin area she has had some pain and discomfort since the incident. She noticed that it hurt to poop at home and bear down so she was quite worried and came in. He has no other symptoms. No nausea no vomiting no fever, no painful frequent urination. Related Data Home Medications Medication Instructions Recorded Confirmed hydrochlorothiazide 25 mg tablet 25 mg PO QDAY ##0 12/20/12 metoprolol tartrate 50 mg tablet 50 mg PO BID ##0 12/20/12 Previous Rx's Medication Instructions Recorded ketorolac 10 mg tablet 10 mg PO Q6HP PRN #15 tabs 09/24/17 amoxicillin 500 mg capsule 500 mg PO TID #21 caps 03/20/18 ibuprofen 800 mg tablet 800 mg PO QID PRN pain #14 tabs 03/20/18 ketorolac 10 mg tablet 10 mg PO TID PRN pain #10 tabs 03/03/19 ketorolac 10 mg tablet 10 mg PO TID #10 tabs 04/13/20 penicillin V potassium 500 mg 500 mg PO QID #40 tabs 04/13/20 tablet doxycycline hyclate 100 mg tablet 100 mg PO BID #20 tabs 01/16/22 Allergies Allergy/AdvReac Type Severity Reaction Status Date / Time bupropion [From Wellbutrin] Allergy Severe Hypotension Verified 09/19/23 18:32 thioridazine [From MELLARIL] Allergy Unknown Verified 04/13/20 11:12 narcotics Allergy Unknown Uncoded 09/19/23 18:32 SULFA Allergy Unknown Uncoded 10/07/17 11:53 Patient History Medical History (Updated 09/19/23 @ 21:39 by Julia Fontana DO) Fatty liver Hypertension Social History Smoking Status: Former smoker Smoking Status: Former smoker alcohol intake frequency: holidays/special occasions only Substance Use Type: does not use Exam Initial Vital Signs Initial Vital Signs: Vital Signs Pulse Rate 81 09/19/23 18:29 Pulse Oximetry 97 09/19/23 18:29 GENERAL: Well-appearing, well-nourished and in no acute distress. CARDIOVASCULAR: peripheral pulses in tact, cap refill <2 sec RESPIRATORY: No respiratory distress, speaks in full sentences without difficulty ABDOMEN: Soft, nontender, no guarding or rebound, minimal tenderness no guarding no rebound in the left lower quadrant no real groin pain EXTREMITIES: Normal range of motion, no clubbing or edema. Neurovascularly intact NEUROLOGICAL: Cranial nerves II through XII grossly intact. Normal gait and speech. SKIN: Warm, dry, no petechiae, no rashes or lesions. Course Orders Ordered: ED Orders 09/19/23 20:45 UA Complete [Urinalysis and Microscopic] Stat Urine Culture Stat Vital Signs Vital signs: Vital Signs - 8 hr 09/19/23 18:29 09/19/23 18:30 09/19/23 18:30 Temperature Pulse Rate 81 78 Respiratory Rate Blood Pressure 169/77 H Pulse Oximetry 97 97 Oxygen Delivery Method 09/19/23 18:32 09/19/23 20:17 Temperature 98.5 F 98.6 F Pulse Rate 77 88 Respiratory Rate 24 14 Blood Pressure 169/77 H 147/67 H Pulse Oximetry 94 98 Oxygen Delivery Method Room Air Room Air MDM - Extremity Injury (Lower) Lab Data Labs: Lab Results 09/19/23 Range/Units 20:45 Urine Color Red Urine Appearance Cloudy Urine pH 7.5 (4.5-8.0) Ur Specific [place] 1.020 (1.000-1.035) Urine Protein 2+ H (Negative) Urine Glucose (UA) 2+ H (Negative) g/dL Urine Ketones Negative (NEGATIVE) Urine Occult Blood 3+ H (Negative) Urine Nitrate Negative (Negative) Urine Bilirubin Negative (NEGATIVE) Urine Urobilinogen 1.0 (0.2) E.U./dL Ur Leukocyte Esterase Trace H (NEGATIVE) Urine RBC >100/hpf H (0-5/HPF) Urine WBC 10-30/hpf H (0-5/HPF) Ur Squamous Epith Cells 1-5 /hpf (0-5/HPF) Urine Bacteria None seen (None) Ur Culture Indicated? Specimen cultured Vol Urine Centrifuged 10ml (spun) MDM Narrative Medical decision making narrative: Patient 58-year-old female presents today with lower abdominal pain after she tripped and fell this morning. She has grossly bloody urine. She says that her urine was not bloody in the toilet but the sample that she got had 1 her couple drops of blood in it. She denies any back pain. She reports that she still gets menstrual cycles but they are very irregular. She does not feel like she has a UTI. She was more concerned about the pain in her left lower quadrant. She actually was able to have bowel movement here in the ED and overall feels a lot better. She feels ready able to go home. Discussed supportive care only with her. Discharge Plan Departure Patient Disposition: Home Clinical Impression: Groin strain Instructions: Groin Strain Activity Restrictions/Additional Instructions: *You have been diagnosed with groin strain *What to do: At this time he likely strained your groin. Your urine was bloody but no obvious infection. Will wait for the culture in the next 2-3 days *Continue to take medications as directed *Follow up with your primary care provider in 2-3 days or call [phone] *Return to ER if you should have increasing pain weakness or any new, worsening or concerning symptoms Prescriptions: No Action metoprolol tartrate 50 MG tablet 50 mg PO BID Qty: 0 hydrochlorothiazide 25 MG tablet 25 mg PO QDAY Qty: 0 ketorolac 10 MG tablet 10 mg PO Q6HP PRNQty: 15 0RF doxycycline hyclate 100 mg tablet 100 mg PO BID Qty: 20 0RF amoxicillin 500 mg capsule 500 mg PO TID Qty: 21 0RF ibuprofen 800 mg tablet 800 mg PO QID PRN (Reason: pain) Qty: 14 0RF ketorolac 10 mg tablet 10 mg PO TID PRN (Reason: pain) Qty: 10 0RF penicillin V potassium 500 mg tablet 500 mg PO QID Qty: 40 0RF ketorolac 10 mg tablet 10 mg PO TID Qty: 10 0RF Referrals: Tamela Harris MD [Primary Care Provider] - Stand Alone Forms: Patient Portal/API
== END 2023-09-19 21:48 | disposition home or self-care (01) ==
PROVIDERS: Emergency Provider Emergency Medicine; PCP Internal Medicine
DX: S39.011A Strain of muscle, fascia and tendon of abdomen, initial encounter (principal); R10.32 Left lower quadrant pain; W01.0XXA Fall on same level from slipping, tripping and stumbling without subsequent striking against object, initial encounter
CPT/HCPCS: 81001; 87077; 87086; 87186; 99281; 99282

== ENCOUNTER 2023-12-28 18:34 | Emergency (ER) | payer OTHER, MEDICAID, SELFPAY ==
[2023-12-28 18:45] VITALS: BP 179/78; PULSE 79; RESP 18; TEMP 36.4; O2SAT 99; BMI 47.8
[2023-12-28 18:50] VITALS: BP 181/92; PULSE 80; RESP 19; O2SAT 96
--- NOTE | 2023-12-28 21:09 | ED_ITS ---
HPI - URI/Sore Throat General Chief Complaint: Upper Respiratory Symptoms Stated Complaint: thinks may have pneumonia Time Seen by Provider: 12/28/23 20:42 Source: patient Mode of arrival: Ambulatory History of Present Illness HPI Narrative: Patient 58-year-old female history of insulin-dependent diabetes, COPD, presenting today with cough and headache. She reports that she thinks she has pneumonia her sister was diagnosed with pneumonia today but it was viral pneumonia but she was given antibiotics. She just wants to be checked out. She has had ongoing headache for about 3 weeks she thinks she has had a sinus infection she feels like it is draining in the back of her throat and now she has a productive cough. She has not significantly short of breath she has not actually had a fever she has low-grade temp. She has albuterol nebulizer at home but does not have the tubing with a mask for it she does not know where her inhaler is. She has no chest pain. No other symptoms. Related Data Home Medications Medication Instructions Recorded Confirmed hydrochlorothiazide 25 mg tablet 25 mg PO QDAY ##0 12/20/12 metoprolol tartrate 50 mg tablet 50 mg PO BID ##0 12/20/12 Previous Rx's Medication Instructions Recorded ketorolac 10 mg tablet 10 mg PO Q6HP PRN #15 tabs 09/24/17 amoxicillin 500 mg capsule 500 mg PO TID #21 caps 03/20/18 ibuprofen 800 mg tablet 800 mg PO QID PRN pain #14 tabs 03/20/18 ketorolac 10 mg tablet 10 mg PO TID PRN pain #10 tabs 03/03/19 ketorolac 10 mg tablet 10 mg PO TID #10 tabs 04/13/20 penicillin V potassium 500 mg 500 mg PO QID #40 tabs 04/13/20 tablet doxycycline hyclate 100 mg tablet 100 mg PO BID #20 tabs 01/16/22 Allergies Allergy/AdvReac Type Severity Reaction Status Date / Time bupropion [From Wellbutrin] Allergy Severe Hypotension Verified 09/19/23 18:32 thioridazine [From MELLARIL] Allergy Unknown Verified 04/13/20 11:12 narcotics Allergy Unknown Uncoded 09/19/23 18:32 SULFA Allergy Unknown Uncoded 10/07/17 11:53 Patient History Medical History (Updated 12/28/23 @ 21:20 by Julia Fontana DO) Fatty liver Hypertension Social History Smoking Status: Former smoker Smoking Status: Former smoker alcohol intake frequency: holidays/special occasions only Substance Use Type: does not use Exam Initial Vital Signs Initial Vital Signs: Vital Signs Temperature 97.6 F 12/28/23 18:45 Pulse Rate 79 12/28/23 18:45 Respiratory Rate 18 12/28/23 18:45 Blood Pressure 179/78 H 12/28/23 18:45 Pulse Oximetry 99 12/28/23 18:45 Oxygen Delivery Method Room Air 12/28/23 18:45 GENERAL: Alert 58 old female no acute distress HEENT: Head atraumatic,EOMI, pupils reactive, face symmetric, moist mucous membranes CARDIOVASCULAR: Regular rate and rhythm without murmurs, rubs or gallops. RESPIRATORY: Breath sounds equal bilaterally, no wheezes rales or rhonchi. No wheezing speaks in full sentences EXTREMITIES: Normal range of motion, no clubbing or edema. Neurovascularly intact NEUROLOGICAL: Alert and oriented x4.Normal gait and speech. SKIN: Warm, dry, no laceration, no petechiae, no rashes or lesions. Course Orders Ordered: Discontinued Medications Albuterol (Albuterol Hfa Prepack) 1 box MISC DIRECTED ONE Stop: 12/28/23 21:11 Last Admin: 12/28/23 21:19 Dose: 1 box Documented By: PRABHU Vital Signs Vital signs: Vital Signs - 8 hr 12/28/23 21:46 Pulse Rate 82 Respiratory Rate 18 Blood Pressure 160/91 H Pulse Oximetry 98 Oxygen Delivery Method Room Air MDM - URI/Sore Throat MDM Narrative Medical decision making narrative: Patient 58-year-old female history of COPD insulin-dependent diabetes presenting today with upper respiratory like in infection. She is concerned as her sister was diagnosed with COVID viral pneumonia but put on antibiotics.On exam she has no significant shortness of breath or dyspnea. She overall appears well and nontoxic. Vitals are stable. Lung sounds are clear. She and I discussed about chest x-ray but she agrees not necessarily indicated. She has albuterol nebulizers at home but she does not have the tubing she has not sure where her albuterol went. She is given albuterol here with an inhaler and reports she has had some improvement. She denies any sort of chest pain. Multiple people with similar symptoms including a friend who is also in the emergency department with the same. #65: Appropriate Treatment for Patients with URI X The patient was diagnosed with upper respiratory infection and was not prescribed or dispensed an antibiotic. [SATISFIES MIPS PERFORMANCE] [] The patient has competing comorbid condition within the last 12 months. The comorbid condition was [] (e.g., neutropenia, cystic fibrosis, chronic bronchitis, pulmonary edema, respiratory failure, rheumatoid lung disease). [ MIPS PERFORMANCE EXCEPTION/EXCLUSION] [] The patient is already on antibiotics, or has taken them within the last 30 days. [MIPS PERFORMANCE EXCEPTION/EXCLUSION] [] The patient had a competing diagnosis of [] (e.g. acute otitis media, chronic sinusitis, cellulitis, UTI, etc.). [MIPS PERFORMANCE EXCEPTION/EXCLUSION] [] The patient was diagnosed with upper respiratory infection and was prescribed or dispensed an antibiotic. [DOES NOT SATISFY MIPS PERFORMANCE] Discharge Plan Departure Patient Disposition: Home Clinical Impression: Upper respiratory infection Instructions: DI for Viral Upper Respiratory Infection -- Adult Activity Restrictions/Additional Instructions: *You have been diagnosed with upper respiratory infection *What to do: At this time I do not believe antibiotics are indicated for you. Lung sounds were clear. No antibiotics indicated for a sinus infection. Please follow-up with your primary care provider *Continue to take medications as directed Albuterol inhaler or nebulizer every 4 hours if needed for cough or shortness of breath *Follow up with your primary care provider in 2-3 days or call [phone] *Return to ER if you should have increasing shortness of breath fever chills or any new, worsening or concerning symptoms Prescriptions: No Action metoprolol tartrate 50 MG tablet 50 mg PO BID Qty: 0 hydrochlorothiazide 25 MG tablet 25 mg PO QDAY Qty: 0 ketorolac 10 MG tablet 10 mg PO Q6HP PRNQty: 15 0RF doxycycline hyclate 100 mg tablet 100 mg PO BID Qty: 20 0RF amoxicillin 500 mg capsule 500 mg PO TID Qty: 21 0RF ibuprofen 800 mg tablet 800 mg PO QID PRN (Reason: pain) Qty: 14 0RF ketorolac 10 mg tablet 10 mg PO TID PRN (Reason: pain) Qty: 10 0RF penicillin V potassium 500 mg tablet 500 mg PO QID Qty: 40 0RF ketorolac 10 mg tablet 10 mg PO TID Qty: 10 0RF Referrals: Tamela Harris MD [Primary Care Provider] - Stand Alone Forms: Patient Portal/API
[2023-12-28] MEDS: ALBUTEROL HFA PREPACK 1 BOX MISC (21:19)
[2023-12-28 21:46] VITALS: BP 160/91; PULSE 82; RESP 18; O2SAT 98
== END 2023-12-28 21:48 | disposition home or self-care (01) ==
PROVIDERS: Emergency Provider Emergency Medicine; PCP Internal Medicine
DX: J06.9 Acute upper respiratory infection, unspecified (principal); Z87.891 Personal history of nicotine dependence
CPT/HCPCS: 99281; 99282

== ENCOUNTER 2025-01-16 14:00 | Inpatient (IN) | payer OTHER, SELFPAY ==
[2025-01-16] VITALS (24 sets, daily range): BP systolic 115–164; BP diastolic 54–84; PULSE 69–105; RESP 17–24; TEMP 36.2–36.9; O2SAT 93–99; BMI 50.3; BMI 47.8
--- NOTE | 2025-01-16 14:16 | PC.NURSE ---
As Iw as wqalking pt back to a room she stated that she has some mild chest pain and thinks it might be anxiety. She said same thing happened before. EKG was ordered.
--- NOTE | 2025-01-16 14:26 | EKG_ITS ---
[address] [address] Test Date: 2025-01-16 Pat Name: Ximena Zhang Department: Room: Gender: Female [employer]: JATINDER : 1965 Requested By: Order Number: [id number] Reading MD: Ezekiel Escobar Measurements Intervals Oliver Rate: 97 P: 48 NH: 142 QRS: 14 QRSD: 92 T: 56 QT: 334 QTc: 424 Interpretive Statements Normal sinus rhythm Cannot rule out Anterior infarct , age undetermined Electronically Signed On 01-17-2025 10:18:10 PDT by Ezekiel Escobar
--- NOTE | 2025-01-16 15:17 | DI.RAD.S_ITS ---
PROCEDURE: XR CHEST 1V INDICATIONS: suspected sepsis TECHNIQUE: One view of the chest was acquired. COMPARISON: None. FINDINGS: Surgical changes and devices: None. Lungs and pleura: Lungs are clear. No pleural effusions or pneumothorax. Mediastinum: Mediastinal contours appear normal. Heart size is normal. Bones and chest wall: No suspicious bony lesions. Overlying soft tissues appear unremarkable. IMPRESSION: No acute cardiopulmonary abnormality is seen. Dictated by: Calvin Hammond M.D. on 01/16/2025 at 16:12 Approved by: Calvin Hammond M.D. on 01/16/2025 at 16:13
[2025-01-16 15:23] LABS: Add Manual Diff / Slide Review NO; Hematocrit 35.1 % (36-46); Hemoglobin 11.8 g/dL (12.0-16.0); Lymphocytes Absolute Auto 1000 /uL (1100-4500); Mean Corpuscular HGB Conc 33.7 % (30-36); Mean Corpuscular Hemoglobin 28.4 PG (26-34); Mean Corpuscular Volume 84.5 fL (80-100); Platelet Count 399 X10^3/uL (150-400)
[2025-01-16 15:29] LABS: INR 1.0 (0.9-1.3); Prothrombin Time 11.7 SECONDS (9.4-12.5)
[2025-01-16 15:32] LABS: PTT Partial Thromboplastin Tim 28 SECONDS (25.1-36.5)
[2025-01-16 15:36] LABS: Alanine Aminotransferase 28 IU/L (<35); Albumin 3.9 g/dL (3.5-5.0); Albumin Globulin Ratio 0.9 (1.0-2.8); Alkaline Phosphatase 104 U/L (38-126); Blood Urea Nitrogen 8 mg/dL (7-17); Calcium 9.6 mg/dL (8.4-10.2); Carbon Dioxide 30 mmol/L (22-32); Chloride 100 mmol/L (98-107); Estimated Glomerular Filt Rate > 60 mL/min (>60); Globulin 4.5 g/dL (1.7-4.1); Glucose 131 mg/dL (70-99); HEMOLYSIS < 15 (0-50); Lipase 69 U/L (23-300); Potassium 4.4 mmol/L (3.4-5.1); Sodium 138 mmol/L (137-145); Total Protein 8.4 g/dL (6.3-8.2)
[2025-01-16 15:37] LABS: Lactate (Lactic Acid) 1.0 mmol/L (0.7-2.1)
[2025-01-16] MEDS: SODIUM CHLORIDE 0.9% 1,000 ML 1000 ML IV (15:51)
[2025-01-16] MEDS: PIPERACILLIN/TAZO 4.5 GM in SODIUM CHLORIDE 0.9% 100 ML IV ×2 (15:52→23:44)
[2025-01-16 15:53] LABS: Procalcitonin 0.092 ng/mL (<0.5)
[2025-01-16] MEDS: MORPHINE 4 MG/ML INJ IV (16:08)
--- NOTE | 2025-01-16 16:11 | DI.CT.S_ITS ---
PROCEDURE: CT LE LT W CON INDICATIONS: Lower leg infection TECHNIQUE: After the administration of intravenous contrast, 3 mm axial sections acquired of the left lower leg , with coronal and sagittal reformats. COMPARISON: None. FINDINGS: Image quality: Diagnostic Bones: There are knee degenerative changes. No definite osseous erosions. No displaced acute fracture or dislocation. Plantar and calcaneal enthesopathy. Prominent dorsal talar osteophyte. Soft tissues: Moderate diffuse subcutaneous fat stranding. There is also skin thickening. No drainable rim enhancing fluid collection. Nonspecific small soft tissue calcifications seen in the lower leg. IMPRESSION: No osseous erosions or displaced fracture is seen. Background degenerative changes. There is diffuse soft tissue swelling with skin thickening, worst in the lower leg representing cellulitis and/or edema. No rim enhancing fluid collections identified. Nonspecific small soft tissue calcifications are present Dictated by: Timo Steve M.D. on 01/16/2025 at 17:32 Approved by: Timo Steve M.D. on 01/16/2025 at 17:35
[2025-01-16] MEDS: VANCOMYCIN 2,000 MG/400 ML PIGGYBACK 200 MG IV (16:36)
[2025-01-16 17:19] LABS: Appearance Urine UA CLEAR; Bilirubin Urine UA NEGATIVE (NEGATIVE); Color Urine UA YELLOW; Glucose Urine UA NEGATIVE (Negative); Ketones Urine UA NEGATIVE (NEGATIVE); Leukocyte Esterase Urine UA NEGATIVE (NEGATIVE); Nitrite Urine UA NEGATIVE (Negative); Occult Blood Urine UA 3+ (Negative); Protein Urine UA TRACE (Negative); Specific Gravity Urine UA 1.015 (1.000-1.035); Urobilinogen Urine UA 1.0 E.U./dL (0.2)
[2025-01-16 17:23] LABS: pH Urine UA 7.0 (4.5-8.0)
[2025-01-16 17:25] LABS: Culture Indicated Urine Cult Not Indicated
[2025-01-16] MEDS: HYDROMORPHONE 1 MG INJ IV (17:43)
--- NOTE | 2025-01-16 18:11 | ED_ITS ---
HPI - Skin/Abscess/Foreign Bdy General Chief complaint: Skin/Abscess/Foreign Body Stated complaint: Lt leg pain Time Seen by Provider: 01/16/25 14:17 Source: patient Mode of arrival: Ambulatory Limitations: no limitations History of Present Illness HPI narrative: 59-year-old female with past medical history insulin-dependent diabetes, COPD presents to the ED with a worsening wound to the left lower leg. Patient was hospitalized at [facility] on 01/06/2025 for sepsis from pneumonia. A few days into her hospitalization, patient developed a left lower leg wound which progressive worsened, spanning from the left knee down to the left ankle. Patient had multiple bullae develop and subside. Patient was discharged home on Augmentin for 10 days. Patient completed the 10 day course, following which she was seen at a walk-in clinic at [facility], they gave her a further 10 day course of Augmentin. Patient is about to start that. Patient believes that her infection is getting better, however she has burning pain at the area of the wound. Patient presents to the ED today for some topical medications for pain relief. No fever, chills, chest pain, shortness of breath, nausea, vomiting, lightheadedness, dizziness, syncope. Related Data Home Medications ?Medication ?Instructions ?Recorded ?Confirmed hydrochlorothiazide 25 mg tablet 25 mg PO QDAY ##0 metoprolol tartrate 50 mg tablet 50 mg PO BID ##0 11/28 10/09 Previous Rx's ?Medication ?Instructions ?Recorded ketorolac 10 mg tablet 10 mg PO Q6HP PRN #15 tabs 0 09/24/17 amoxicillin 500 mg capsule 500 mg PO TID #21 caps 02/28 08/16 ibuprofen 800 mg tablet 800 mg PO QID PRN pain #14 t abs 03/20/18 ketorolac 10 mg tablet 10 mg PO TID PRN pain #10 ta bs 03/03/19 ketorolac 10 mg tablet 10 mg PO TID #10 tabs penicillin V potassium 500 mg 500 mg PO QID #40 tabs 1 tablet doxycycline hyclate 100 mg tablet 100 mg PO BID #20 ta bs 01/16/22 Allergies Allergy/AdvReac Type Severity Reaction Status Date / Time bupropion (From Wellbutrin) Allergy Severe Hypotension Verified 01/16/25 14:12 thioridazine (From MELLARIL) Allergy Unknown Verified 01/16/25 14:12 narcotics Allergy Unknown Uncoded 01/16/25 14:12 SULFA Allergy Unknown Uncoded 01/16/25 14:12 Review of Systems Constitutional Constitutional: Denies chills, Denies fatigue, Denies fever(s), Denies frequent falls, Denies lethargy and Denies weakness Eyes Eyes: Denies change in vision, Denies eye discharge, Denies irritation and Denies loss of vision ENT Ears, Nose, Mouth, and Throat: Denies change in voice, Denies dizziness, Denies neck pain, Denies sore throat and Denies throat swelling Cardiovascular Cardiovascular: Denies chest pain, Denies irregular heart rhythm, Denies lightheadedness, Denies palpitations, Denies dyspnea, Denies dyspnea on exertion and Denies orthopnea Respiratory Respiratory: Denies cough, Denies dyspnea, Denies dyspnea on exertion and Denies wheezing Gastrointestinal Gastrointestinal: Denies abdominal pain, Denies change in bowel habits, Denies diarrhea, Denies nausea and Denies vomiting Musculoskeletal Musculoskeletal: Denies neck pain and Denies numbness Integumentary/Breasts Skin/Breast: Denies pruritus, Denies erythema, Denies rash and Reports wounds Comments: left lower leg wound, burning pain Neurologic Neurologic: Denies behavioral changes, Denies confusion, Denies dizziness, Denies frequent falls, Denies loss of vision, Denies numbness and Denies weakness Psychiatric Psychiatric: Denies anxiety, Denies behavioral changes, Denies confusion, Denies depression, Denies homicidal ideation and Denies suicidal ideation Endocrine Endocrine: Denies fatigue, Denies flushing and Denies palpitations Hematologic/Lymphatic Hematologic/Lymphatic: Denies easy bruising Allergic/Immunologic Allergic/Immunologic: Denies urticaria, Denies throat swelling and Denies wheezing Patient History Medical History (Updated 01/16/25 @ 19:14 by Gabbi Soria PA-C) Fatty liver Hypertension Social History Smoking Status: Never smoker Smoking Status: Never smoker alcohol intake frequency: holidays/special occasions only Exam Narrative Exam Narrative: Const General:?cooperative, healthy appearing and comfortable [facility] Head:?normal to inspection Ears:?hearing grossly normal bilaterally Nose:?external nose normal Face and sinus:?normal facial exam and sinuses nontender Mouth:?oral mucosae normal Throat:?posterior oropharynx normal Eyes General:?appearance normal, both eyes and all related structures Neck Neck:?normal visual inspection and no lymphadenopathy noted Resp Effort & Inspection:?normal respiratory effort Auscultation:?clear to auscultation bilaterally Cardio Rate:?regular rate Rhythm:?regular rhythm Integumentary There is a circumferential, weeping leg wound, warm to the touch, from the left knee down to the left ankle. Overlying erythema, burning pain. Compartments soft. Neurovascularly intact. Neuro General:?patient alert, patient awake and patient oriented x3 Initial Vital Signs Initial Vital Signs: Vital Signs Temperature 98.4 F 01/16/25 14:04 Pulse Rate 105 H 01/16/25 14:04 Respiratory Rate 18 01/16/25 14:04 Blood Pressure 148/76 H 01/16/25 14:04 Pulse Oximetry 96 01/16/25 14:04 Oxygen Delivery Method Room Air 01/16/25 14:04 Course Orders Ordered: ED Orders 01/16/25 14:16 EKG-12 Lead Stat 01/16/25 15:10 Complete Blood Count AUTO DIFF Stat Comprehensive Metabolic Panel Stat Lactate (Lactic Acid) Stat Lipase Stat PTT Partial Thromboplastin [place] Stat Procalcitonin Stat Prothrombin Time INR Stat 01/16/25 15:17 XR chest 1V Stat 01/16/25 15:26 Blood Culture Stat 01/16/25 16:11 CT LE LT w con Stat 01/16/25 16:53 Urinalysis and Microscopic Stat Ondansetron HCl (Ondansetron 4 Mg/2 Ml Inj) 4 mg IV NOW PRN PRN Reason: Nausea And Vomiting Ondansetron HCl (Ondansetron 4 Mg Odt) 4 mg PO NOW PRN PRN Reason: Nausea And Vomiting Discontinued Medications Hydromorphone HCl (Hydromorphone 1 Mg Inj) 1 mg IV NOW ONE Stop: 01/16/25 17:31 Last Admin: 01/16/25 17:43 Dose: 1 mg Documented By: MARISELA Sodium Chloride (Normal Saline 0.9%) 1,000 mls @ 1,000 mls/hr IV BOLUS ONE Stop: 01/16/25 16:16 Last Infusion: 01/16/25 16:33 Dose: Infused Documented By: Admin: 01/16/25 15:51 Dose: 1,000 mls/hr Documented By: MARISELA Piperacillin Sod/Tazobactam (Sod 4.5 gm/ Sodium Chloride) 100 mls @ 200 mls/hr IV STAT ONE Stop: 01/16/25 15:24 Last Infusion: 01/16/25 16:32 Dose: Infused Documented By: Admin: 01/16/25 15:52 Dose: 200 mls/hr Documented By: MARISELA Vancomycin HCl/Dextrose (Vancomycin) 2,000 mg in 400 mls @ 200 mls/hr IV STAT ONE Stop: 01/16/25 17:59 Last Admin: 01/16/25 16:36 Dose: 200 mls/hr Documented By: MARISELA Morphine Sulfate (Morphine 4 Mg/Ml Inj) 4 mg IV NOW ONE Stop: 01/16/25 16:06 Last Admin: 01/16/25 16:08 Dose: 4 mg Documented By: MARISELA Vital Signs Vital signs: Vital Signs - 8 hr 01/16/25 14:04 01/16/25 15:19 01/16/25 15:30 Temperature 98.4 F Pulse Rate 105 H 95 H 92 H Respiratory Rate 18 22 22 Blood Pressure 148/76 H Pulse Oximetry 96 98 99 Oxygen Delivery Method Room Air 01/16/25 15:31 01/16/25 15:31 01/16/25 16:00 Temperature Pulse Rate 90 93 H Respiratory Rate 23 23 Blood Pressure 160/71 H Pulse Oximetry 97 98 Oxygen Delivery Method 01/16/25 16:01 01/16/25 16:01 01/16/25 16:30 Temperature Pulse Rate 91 H 89 Respiratory Rate 24 Blood Pressure 148/65 H Pulse Oximetry 98 98 Oxygen Delivery Method 01/16/25 16:30 01/16/25 17:04 01/16/25 17:06 Temperature Pulse Rate 98 H 95 H Respiratory Rate Blood Pressure 139/63 Pulse Oximetry 96 97 Oxygen Delivery Method 01/16/25 17:06 01/16/25 17:30 01/16/25 17:31 Temperature Pulse Rate 92 H Respiratory Rate Blood Pressure 164/72 H 142/65 H Pulse Oximetry 95 Oxygen Delivery Method 01/16/25 17:31 01/16/25 18:00 01/16/25 18:02 Temperature Pulse Rate 92 H 95 H 90 Respiratory Rate Blood Pressure Pulse Oximetry 96 95 97 Oxygen Delivery Method 01/16/25 18:02 01/16/25 18:30 01/16/25 18:30 Temperature Pulse Rate 86 Respiratory Rate Blood Pressure 126/61 131/63 Pulse Oximetry 93 Oxygen Delivery Method 01/16/25 19:00 Temperature Pulse Rate 71 Respiratory Rate Blood Pressure Pulse Oximetry 97 Oxygen Delivery Method MDM - Skin/Abscess/Foreign Bdy Lab Data 01/16/25 15:10 01/16/25 15:10 Labs: Lab Results 01/16/25 01/16/25 Range/Units 15:10 16:53 WBC 5.6 (4.5-11.0) X10^3/uL RBC 4.15 (4.0-5.2) X10^6/uL Hgb 11.8 L (12.0-16.0) g/dL Hct 35.1 L (36-46) % MCV 84.5 (80-100) fL MCH 28.4 (26-34) PG MCHC 33.7 (30-36) % RDW 14.9 H (11.6-14.8) % Plt Count 399 (150-400) X10^3/uL Neut % (Auto) 69.7 (50-75) % Lymph % (Auto) 18.3 L (25-40) % [place] % (Auto) 10.3 (3-14) % Eos % (Auto) 1.0 L (2-4) % Baso % (Auto) 0.7 (0-2) % Neut # (Auto) 3900 (6169-4209) /uL Lymph # (Auto) 1000 L (8202-8998) /uL [place] # (Auto) 600 (0-900) /uL Eos # (Auto) 100 (0-450) /uL Baso # (Auto) 0 (0-100) /uL PT 11.7 (9.4-12.5) SECONDS INR 1.0 (0.9-1.3) APTT 28 (25.1-36.5) SECONDS Sodium 138 (137-145) mmol/L Potassium 4.4 (3.4-5.1) mmol/L Chloride 100 (98-107) mmol/L Carbon Dioxide 30 (22-32) mmol/L BUN 8 (7-17) mg/dL Creatinine 0.82 (0.52-1.04) mg/dL Estimated GFR > 60 (>60) mL/min BUN/Creatinine Ratio 9.8 (6-22) Glucose 131 H (70-99) mg/dL Lactate 1.0 (0.7-2.1) mmol/L Calcium 9.6 (8.4-10.2) mg/dL Total Bilirubin 1.0 (0.2-1.3) mg/dL AST 25 (14-36) IU/L ALT 28 (<35) IU/L Alkaline Phosphatase 104 (38-126) U/L Total Protein 8.4 H (6.3-8.2) g/dL Albumin 3.9 (3.5-5.0) g/dL Globulin 4.5 H (1.7-4.1) g/dL Albumin/Globulin Ratio 0.9 L (1.0-2.8) Lipase 69 (23-300) U/L Procalcitonin 0.092 (<0.5) ng/mL Urine Color Yellow Urine Appearance Clear Urine pH 7.0 (4.5-8.0) Ur Specific [place] 1.015 (1.000-1.035) Urine Protein Trace H (Negative) Urine Glucose (UA) Negative (Negative) g/dL Urine Ketones Negative (NEGATIVE) Urine Occult Blood 3+ H (Negative) Urine Nitrate Negative (Negative) Urine Bilirubin Negative (NEGATIVE) Urine Urobilinogen 1.0 (0.2) E.U./dL Ur Leukocyte Esterase Negative (NEGATIVE) Urine RBC 10-30/hpf H (0-5/HPF) Urine WBC 0-1/hpf (0-5/HPF) Ur Squamous Epith Cells 5-10 /hpf H (0-5/HPF) Urine Bacteria None seen (None) Ur Culture Indicated? Cult not indicated Vol Urine Centrifuged 10ml (spun) MDM Narrative Medical decision making narrative: 59-year-old female with past medical history insulin-dependent diabetes, COPD presents to the ED with a worsening wound to the left lower leg. Concern for failure of outpatient antibiotic therapy versus sepsis versus necrotizing infection versus other. Will obtain labs, CT lower extremity, control pain. Patient triggered sepsis, sirs positive for tachycardia and tachypnea. IV fluids, vancomycin, Zosyn initiated. CT lower extremity shows no osseous erosions or displaced fracture. There is diffuse soft tissue swelling with skin thickening, worst in the lower leg representing cellulitis and/or or enema. No rim enhancing fluid collections identified. Nonspecific small soft tissue calcifications are present. WBC within normal limits at 5.6. All other labs within normal limits. Patient was given a dose of morphine, and later Dilaudid for pain control. Hospitalist was consulted regarding admission for continued IV antibiotics. Discussed findings and disposition with patient. Patient is agreeable to the plan. Patient admitted. Medical records reviewed: Yes Discharge Plan Departure Patient Disposition: Admitted As Inpatient Clinical Impression: Cellulitis Qualifiers: Site of cellulitis: extremity Site of cellulitis of extremity: lower extremity Laterality: left Qualified Code(s): L03.116 - Cellulitis of left lower limb Admit Date/Time: 01/16/25 19:15 Admit Provider: Gonzales Cook
--- NOTE | 2025-01-16 19:47 | P.HP_ITS ---
History of Present Illness History of Present Illness Date Patient Seen: 01/16/25 Time Patient Seen: 23:00 Chief complaint: Lt leg pain Narrative: 59 y/o with PMH of HTN, HLD, IDDM, [facility] and LLE [facility]ulitis - on 01/06. Discharged with 10 days of Augmentin for leg cellullitis, finished the course but leg looks worse. Presnts with large, circumferential cellulitis. Not septic. Treated with IVFs and antibiotics and admitted for LLE cellulitis. [facility] Medical History (Updated 01/17/25 @ 04:33 by Gonzales Scott MD) IDDM (insulin dependent diabetes mellitus) Obesity Fatty liver Hypertension Social History household members: family Smoking Status: Never smoker Meds Home Medications and Allergies Home Medications ?Medication ?Instructions ?Recorded ?Confirmed ?Type hydrochlorothiazide 25 mg tablet 25 mg PO QDAY PRN [place] ma ##0 12/20/12 01/16/25 History amlodipine 2.5 mg tablet 2.5 mg PO BEDTIME 01/16/25 0 01/16/25 History atorvastatin 20 mg tablet 20 mg PO BEDTIME 01/16/25 History cholecalciferol (vitamin D3) 25 25 mcg PO BEDTIME 12/2801/16/25 History mcg (1,000 unit) capsule (Vitamin D3) diphenhydramine HCl 25 mg capsule 25 mg PO Q8H PRN all ergies 01/16/25 01/16/25 History (Benadryl) insulin aspart U-100 100 unit/mL 50 unit SUBCUT DIR ECTED 01/16/25 01/16/25 History (3 mL) subcutaneous pen insulin glargine 100 unit/mL (3 50 unit SUBCUT QPM 01/16/25 History mL) subcutaneous pen ketotifen fumarate 0.025 % (0.035 1 drp EYE-BOTH DAILY PRN allergy 01/16/25 01/16/25 History %) eye drops (Allergy Eye symptoms (ketotifen)) Allergies Allergy/AdvReac Type Severity Reaction Status Date / Time bupropion (From Wellbutrin) Allergy Severe Hypotension Verified 01/16/25 14:12 thioridazine (From MELLARIL) Allergy Unknown Verified 01/16/25 14:12 narcotics Allergy Unknown Uncoded 01/16/25 14:12 SULFA Allergy Unknown Uncoded 01/16/25 14:12 Review of Systems Review of Systems Narrative: General - w/o fever or chills CVS-m w/o chest pain RS - w/o shortness of breath Ext - LLE pain, swelling, wound Exam Vital Signs (past 8 hours): - 01/16/25 14:04 01/16/25 15:19 01/16/25 15:30 Temperature 98.4 F Pulse Rate 105 H 95 H 92 H Respiratory Rate 18 22 22 Blood Pressure 148/76 H Pulse Oximetry 96 98 99 Oxygen Delivery Method Room Air 01/16/25 15:31 01/16/25 15:31 01/16/25 16:00 Temperature Pulse Rate 90 93 H Respiratory Rate 23 23 Blood Pressure 160/71 H Pulse Oximetry 97 98 Oxygen Delivery Method 01/16/25 16:01 01/16/25 16:01 01/16/25 16:30 Temperature Pulse Rate 91 H 89 Respiratory Rate 24 Blood Pressure 148/65 H Pulse Oximetry 98 98 Oxygen Delivery Method 01/16/25 16:30 01/16/25 17:04 01/16/25 17:06 Temperature Pulse Rate 98 H 95 H Respiratory Rate Blood Pressure 139/63 Pulse Oximetry 96 97 Oxygen Delivery Method 01/16/25 17:06 01/16/25 17:30 01/16/25 17:31 Temperature Pulse Rate 92 H Respiratory Rate Blood Pressure 164/72 H 142/65 H Pulse Oximetry 95 Oxygen Delivery Method 01/16/25 17:31 01/16/25 18:00 01/16/25 18:02 Temperature Pulse Rate 92 H 95 H 90 Respiratory Rate Blood Pressure Pulse Oximetry 96 95 97 Oxygen Delivery Method 01/16/25 18:02 01/16/25 18:30 01/16/25 18:30 Temperature Pulse Rate 86 Respiratory Rate Blood Pressure 126/61 131/63 Pulse Oximetry 93 Oxygen Delivery Method 01/16/25 19:00 Temperature Pulse Rate 71 Respiratory Rate Blood Pressure Pulse Oximetry 97 Oxygen Delivery Method Oxygen Delivery Method Room Air Narrative Exam Narrative: General - in no distress HEENT- equal pupils, eomi, supple neck CVS - RRR RS - normal respiratory effort GI - obese andomen Ext - Lt lower leg swelling, erythema Objective ECG Impression: NSR 97 Imaging Chest x-ray: Radiologist's impression: No acute cardiopulmonary abnormality. CT LLE: Radiologist's impression: No osseous erosions or displaced fracture is seen. Background degenerative changes. There is diffuse soft tissue swelling with skin thickening, worst in the lower leg representing cellulitis and/or edema. No rim enhancing fluid collections identified. Labs 01/16/25 15:10 01/16/25 15:10 Labs: Laboratory Results - last 24 hr 01/16/25 01/16/25 15:10 16:53 WBC 5.6 RBC 4.15 Hgb 11.8 L Hct 35.1 L MCV 84.5 MCH 28.4 MCHC 33.7 RDW 14.9 H Plt Count 399 Neut % (Auto) 69.7 Lymph % (Auto) 18.3 L [place] % (Auto) 10.3 Eos % (Auto) 1.0 L Baso % (Auto) 0.7 Neut # (Auto) 3900 Lymph # (Auto) 1000 L [place] # (Auto) 600 Eos # (Auto) 100 Baso # (Auto) 0 PT 11.7 INR 1.0 APTT 28 Sodium 138 Potassium 4.4 Chloride 100 Carbon Dioxide 30 BUN 8 Creatinine 0.82 Estimated GFR > 60 BUN/Creatinine Ratio 9.8 Glucose 131 H Lactate 1.0 Calcium 9.6 Total Bilirubin 1.0 AST 25 ALT 28 Alkaline Phosphatase 104 Total Protein 8.4 H Albumin 3.9 Globulin 4.5 H Albumin/Globulin Ratio 0.9 L Lipase 69 Procalcitonin 0.092 Urine Color Yellow Urine Appearance Clear Urine pH 7.0 Ur Specific [place] 1.015 Urine Protein Trace H Urine Glucose (UA) Negative Urine Ketones Negative Urine Occult Blood 3+ H Urine Nitrate Negative Urine Bilirubin Negative Urine Urobilinogen 1.0 Ur Leukocyte Esterase Negative Urine RBC 10-30/hpf H Urine WBC 0-1/hpf Ur Squamous Epith Cells 5-10 /hpf H Urine Bacteria None seen Ur Culture Indicated? Cult not indicated Vol Urine Centrifuged 10ml (spun) Assessment & Plan Assessment and plan (1) Cellulitis of leg, left: Status: Acute (2) IDDM (insulin dependent diabetes mellitus): Status: Acute (3) Obesity: Status: Acute (4) Hypertension: Status: Acute Assessment & Plan narrative: LLE Cellulitis - failed almost 2 weeks of antibiotics - vancomycin, Zosyn - elevate leg - pain management IDDM - Lantus - SS - CCD HTN - Norvasc 2.5 mg daily - metoprolol 50 mg bid - home HCTZ held DVT prophylaxis - Lovenox Patient consented to telemedicine, real time, audio-visual encounter with RN assisting during the exam. Patient located at [place], [place], provider located in [place]. Time-Based Coding :: [TOTAL MINUTES] spent with patient and on the chart (including review of chart, obtaining history, exam, reviewing outside data, placing orders, documenting exam and treatment plan, and counseling patient) on [DATE].
[2025-01-16] MEDS: SODIUM CHLORIDE 0.9% 1,000 ML 100 ML IV (20:13)
[2025-01-16] MEDS: AMLODIPINE 5 MG TABLET 2.5 MG PO (23:54)
[2025-01-17] VITALS (9 sets, daily range): BP systolic 137–167; BP diastolic 62–76; PULSE 93–101; RESP 18–22; TEMP 35.9–36.6; O2SAT 93–98
[2025-01-17] MEDS: diphenhydrAMINE 25 MG TABLET PO ×3 (03:52→20:30)
[2025-01-17] MEDS: VANCOMYCIN 1,500 MG/300 ML PIGGYBACK 200 MG IV (04:04)
[2025-01-17] MEDS: OXYCODONE IR 5 MG TABLET PO ×4 (04:41→17:44)
--- NOTE | 2025-01-17 05:15 | PC.NURSE ---
Addendum entered by Leti Castellano R.N. 01/17/25 06:21: Patient started to punch at the bed rails and samayoa, expressing she is itching and upset, stating no one is helping me. This RN explained rationale behind interventions, and explained that the medications will take time to work. Provided ice packs for comfort, pillows for leg elevation, and snacks. Patient currently resting in bed, stating that she feels her medication starting to take effect with the pain/itching. Plan of care ongoing. Original Note: organic search lead: Patient arrived from ED approximately 2130, ambulated in room SBA. Reported 7/10 pain in L leg that increases when walking and itching. Vital signs are stable, CMS intact. MD Scott spoke with patient via [facility], patient verbalized understanding of plan of care. Medicated for pain and itchiness as ordered. L leg elevated. IV abx infused as ordered. Oriented to call-light, plan of care ongoing.
[2025-01-17 05:20] LABS: Add Manual Diff / Slide Review NO; Hematocrit 31.3 % (36-46); Hemoglobin 10.7 g/dL (12.0-16.0); Lymphocytes Absolute Auto 900 /uL (1100-4500); Mean Corpuscular HGB Conc 34.1 % (30-36); Mean Corpuscular Hemoglobin 28.8 PG (26-34); Mean Corpuscular Volume 84.4 fL (80-100); Platelet Count 380 X10^3/uL (150-400)
[2025-01-17 05:28] LABS: Blood Urea Nitrogen 8 mg/dL (7-17); Calcium 9.0 mg/dL (8.4-10.2); Carbon Dioxide 25 mmol/L (22-32); Chloride 102 mmol/L (98-107); Estimated Glomerular Filt Rate > 60 mL/min (>60); Glucose 214 mg/dL (70-99); HEMOLYSIS < 15 (0-50); Potassium 4.4 mmol/L (3.4-5.1); Sodium 134 mmol/L (137-145)
[2025-01-17] MEDS: SODIUM CHLORIDE 0.9% 1,000 ML 100 ML IV (05:40)
[2025-01-17] MEDS: PIPERACILLIN/TAZO 4.5 GM in SODIUM CHLORIDE 0.9% 100 ML IV (06:49)
[2025-01-17] MEDS: INSULIN LISPRO 100 UNIT/ML 3ML VIAL SUBCUT ×3 (08:06→17:38)
[2025-01-17] MEDS: ENOXAPARIN 40 MG/0.4 ML SYRINGE SUBCUT ×2 (08:07→20:29)
--- NOTE | 2025-01-17 09:04 | PM.PN.1 ---
Subjective Subjective Interval history: The skin on her left leg is peeling like the swelling has been much worse but there is still significant drainage and yellowish crusting present along with darker red discoloration. The appearance is suggestive of a strep rather than a staph infection. The blood pressure is 144/72. Hydrochlorothiazide will be resumed. She continues on vancomycin and Zosyn. This was after failing Augmentin so covering for possible Pseudomonas or a resistant strep type infection is appropriate. Blood sugar ranges from 07/28 [id number] a culture will be done of the leg today. She is quite hirsute which is not explained clearly in the records. Exam Vital Signs (past 8 hours): - 01/17/25 03:45 01/17/25 07:00 Temperature 97.7 F 97.9 F Pulse Rate 101 H 94 H Respiratory Rate 22 20 Blood Pressure 137/76 144/72 H Pulse Oximetry 94 95 Oxygen Flow Rate 0 Oxygen Delivery Method Room Air Oxygen Flow Rate 0 Narrative Exam Narrative: Alert and oriented x3. No apparent distress. She has a full length ashley. Heart is regular rate and rhythm without murmur Lungs are clear to auscultation bilaterally Right leg is normal. There has no ankle edema. Left leg Large area of redness, most intense on the posterior and lateral aspect of the calf with yellowish crusting and drainage from the anterior part of the jarrett. Objective Labs 01/17/25 05:00 01/17/25 05:00 Labs: Laboratory Results - last 24 hr 01/16/25 01/16/25 01/16/25 15:10 16:53 21:55 WBC 5.6 RBC 4.15 Hgb 11.8 L Hct 35.1 L MCV 84.5 MCH 28.4 MCHC 33.7 RDW 14.9 H Plt Count 399 Neut % (Auto) 69.7 Lymph % (Auto) 18.3 L [place] % (Auto) 10.3 Eos % (Auto) 1.0 L Baso % (Auto) 0.7 Neut # (Auto) 3900 Lymph # (Auto) 1000 L [place] # (Auto) 600 Eos # (Auto) 100 Baso # (Auto) 0 PT 11.7 INR 1.0 APTT 28 Sodium 138 Potassium 4.4 Chloride 100 Carbon Dioxide 30 BUN 8 Creatinine 0.82 Estimated GFR > 60 BUN/Creatinine Ratio 9.8 Glucose 131 H POC Whole Bld Glucose 155 H Lactate 1.0 Calcium 9.6 Total Bilirubin 1.0 AST 25 ALT 28 Alkaline Phosphatase 104 Total Protein 8.4 H Albumin 3.9 Globulin 4.5 H Albumin/Globulin Ratio 0.9 L Lipase 69 Procalcitonin 0.092 Urine Color Yellow Urine Appearance Clear Urine pH 7.0 Ur Specific [place] 1.015 Urine Protein Trace H Urine Glucose (UA) Negative Urine Ketones Negative Urine Occult Blood 3+ H Urine Nitrate Negative Urine Bilirubin Negative Urine Urobilinogen 1.0 Ur Leukocyte Esterase Negative Urine RBC 10-30/hpf H Urine WBC 0-1/hpf Ur Squamous Epith Cells 5-10 /hpf H Urine Bacteria None seen Ur Culture Indicated? Cult not indicated Vol Urine Centrifuged 10ml (spun) 01/17/25 05:00 WBC 5.8 RBC 3.71 L Hgb 10.7 L Hct 31.3 L MCV 84.4 MCH 28.8 MCHC 34.1 RDW 14.9 H Plt Count 380 Neut % (Auto) 73.1 Lymph % (Auto) 15.3 L [place] % (Auto) 10.2 Eos % (Auto) 0.8 L Baso % (Auto) 0.6 Neut # (Auto) 4200 Lymph # (Auto) 900 L [place] # (Auto) 600 Eos # (Auto) 0 Baso # (Auto) 0 PT INR APTT Sodium 134 L Potassium 4.4 Chloride 102 Carbon Dioxide 25 BUN 8 Creatinine 0.77 Estimated GFR > 60 BUN/Creatinine Ratio 10.4 Glucose 214 H POC Whole Bld Glucose Lactate Calcium 9.0 Total Bilirubin AST ALT Alkaline Phosphatase Total Protein Albumin Globulin Albumin/Globulin Ratio Lipase Procalcitonin Urine Color Urine Appearance Urine pH Ur Specific [place] Urine Protein Urine Glucose (UA) Urine Ketones Urine Occult Blood Urine Nitrate Urine Bilirubin Urine Urobilinogen Ur Leukocyte Esterase Urine RBC Urine WBC Ur Squamous Epith Cells Urine Bacteria Ur Culture Indicated? Vol Urine Centrifuged [facility] Medical History (Updated 01/17/25 @ 04:33 by Gonzales Scott MD) IDDM (insulin dependent diabetes mellitus) Obesity Fatty liver Hypertension Social History household members: family Smoking Status: Never smoker Assessment & Plan Assessment & Plan narrative: LLE Cellulitis - Failed to improve despite almost 2 weeks of oral Augmentin which was started after she discharged from a [facility] Pneumonia/Sepsis hospital stay. - vancomycin, Zosyn - BC negative, Wound culture done on 01/17/25 - elevate leg - pain management IDDM - Lantus - SS Lispro - CCD HTN - Norvasc 2.5 mg daily - metoprolol 50 mg bid - HCTZ 25 mg daily Normocytic anemia -admitting hemoglobin of 10.7, likely due to recent prolonged illness. -Check Iron and B12 Disposition: Likely transition back to oral antibiotics in 2-3 days depending on progression and culture results. DVT prophylaxis - Lovenox Time-Based Coding :: [TOTAL MINUTES] spent with patient and on the chart (including review of chart, obtaining history, exam, reviewing outside data, placing orders, documenting exam and treatment plan, and counseling patient) on [DATE]. Quality VTE Deep Vein Thrombosis/Pulmonary Embolism Present on Admission: No
[2025-01-17 11:57] LABS: HEMOLYSIS < 15 (0-50); Iron 42 ug/dL (37-170)
[2025-01-17 12:07] LABS: Percent Iron Saturation 16 % (15-50); Total Iron Binding Capacity 268 ug/dL (265-497)
--- NOTE | 2025-01-17 12:36 | CM.DANOTE ---
Initial DCP Assessment Visit Note Reviewed EMR and team rounds for pt's medical status and updates. Met with pt at bedside to introduce self and role. Pt was found to be alert/oriented, anxious, expressing discomfort and itching with her wounds, and stated feeling anxious about what her hospital bill would be for her stay. STE[employer]TER provided information re: how our billing cycle works, and that we do have financial assistance she can apply for once she get's her bill from her insurance company. Pt lives independently in her own mobile home, next door to her son's mobile home in [place]. He will also transport her home once she's medically cleared for d/c. Payor: [facility] PCP: Zack Harris Pt is a 59 year-old F with a hx of insulin-dependent diabetes and COPD. She presented to the ED last evening with c/o a worsening L-lower leg wound that was increasing in pain, redness, and size. She had just been hospitalized at [facility] on 01/06/25 for pneumonia and sepsis, was discharged on oral Augmentin, then required a second cycle, which she has already completed. In the ED she was diagnosed again with sepsis, and was started on IV antibiotics and fluids, then admitted for further tx. DCP will continue to follow for further evolving needs prior to d/c. This STE[employer] INSERTER did discuss housing resources on [facility], and provided her with contact info for the [employer] program. 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 No History Provided By Patient,Medical Record Has Patient been No admitted in last 30 days? Prior Living Mobile home Arrangements Household Members family Type of Drives own vehicle transporation used prior to admit Independent with ADL Yes 's Is patient alert and Yes oriented? Caregiver for Yes: grandchildren Another Comment May need OP wound care, depending on her improvement. Barriers to No Discharge Discharge Plan Home Transportation Son Arrangement Referrals Initiated None needed Whiteboard Updated Yes in Patient Room with name and ext. # of Analysis Mgr Review Status In Process Please Provide Date 01/17/25 Initial DC Assessment Was Performed
[2025-01-17 13:27] LABS: Vitamin B12 627 pg/mL (239-931)
[2025-01-17] MEDS: PIPERACILLIN/TAZO 3.375 GM in SODIUM CHLORIDE 0.9% 100 ML IV ×2 (16:00→22:58)
[2025-01-17 17:09] LABS: Transferrin 204 mg/dL (206-381)
[2025-01-17] MEDS: INSULIN GLARGINE 100 UNIT/ML 3ML PEN 50 UNIT SUBCUT (17:36)
[2025-01-17] MEDS: INSULIN GLARGINE 100 UNIT/ML 3ML PEN 40 UNIT SUBCUT (17:40)
[2025-01-17] MEDS: AMLODIPINE 5 MG TABLET 2.5 MG PO (20:30)
[2025-01-17] MEDS: CHOLECALCIFEROL (VITAMIN D3) 1,000 UNIT TABLET 1000 UNIT PO (20:30)
[2025-01-17] MEDS: ATORVASTATIN 20 MG TABLET PO (20:30)
[2025-01-18] VITALS (10 sets, daily range): BP systolic 142–162; BP diastolic 43–77; PULSE 92–95; RESP 16–20; TEMP 36.3–37.1; O2SAT 94–99
[2025-01-18] MEDS: diphenhydrAMINE 25 MG TABLET PO ×3 (02:46→21:47)
[2025-01-18] MEDS: OXYCODONE IR 5 MG TABLET PO ×5 (03:32→21:47)
[2025-01-18] MEDS: VANCOMYCIN 2,000 MG/400 ML PIGGYBACK 200 MG IV (03:33)
[2025-01-18] MEDS: PIPERACILLIN/TAZO 3.375 GM in SODIUM CHLORIDE 0.9% 100 ML IV ×3 (06:28→22:02)
[2025-01-18] MEDS: ENOXAPARIN 40 MG/0.4 ML SYRINGE SUBCUT ×2 (08:35→21:47)
[2025-01-18] MEDS: INSULIN LISPRO 100 UNIT/ML 3ML VIAL SUBCUT ×4 (08:40→21:50)
--- NOTE | 2025-01-18 10:19 | PM.PN.1 ---
Subjective Subjective Interval history: Summary: She was admitted with left leg cellulitis. This has been somewhat subacute following a initial admission at [facility]. She was on Augmentin with worsened symptoms. There is a question of Pseudomonas or refractory streptococcal infection. She is hirsute. S: The leg is improving. It was still quite red and there lot of areas that look like impetigo. The swelling is decreased in the pain is decreased. Exam Vital Signs (past 8 hours): - 01/18/25 04:06 01/18/25 05:00 01/18/25 08:00 Temperature 98.8 F 97.3 F L Pulse Rate 92 H 95 H Respiratory Rate 20 20 Blood Pressure 155/65 H 159/74 H Pulse Oximetry 95 99 95 Oxygen Delivery Method Room Air Oxygen Flow Rate 0 Oxygen Delivery Method Room Air Oxygen Flow Rate 0 Narrative Exam Narrative: NAD, alert and oriented. Fluent speech. Lungs are clear, normal rate and effort. Heart is regular, no murmur gallop or rub. Abdomen is soft, non distended. Extremities: Left leg is swollen, red and there is multiple areas of patchy, yellow crusting on the anterior part of the jarrett. Objective Labs 01/17/25 05:00 01/17/25 05:00 Labs: Laboratory Results - last 24 hr 01/17/25 01/17/25 01/17/25 05:00 12:03 17:09 POC Whole Bld Glucose 163 H 207 H Iron 42 TIBC 268 % Saturation 16 Transferrin 204 L Vitamin B12 627 01/17/25 01/18/25 20:17 08:23 POC Whole Bld Glucose 156 H 132 H Iron TIBC % Saturation Transferrin Vitamin B12 [facility] Medical History IDDM (insulin dependent diabetes mellitus) Obesity Fatty liver Hypertension Social History household members: family Smoking Status: Never smoker Assessment & Plan Assessment & Plan narrative: 1. Left leg cellulitis, present on admission and improving. She was on Augmentin prior to admission with evidence of clinical lack of response. 2. Dm 2, insulin-dependent. 3. Hypertension, stable. 4. Normocytic anemia, stable. 5. Morbid obesity with BMI of 47, present on admission and active. Plan: -We will continue current therapy with vancomycin Zosyn. We will obtain nares MRSA and follow up wound cultures. GNB on preliminary culture of leg. -continue leg elevation. -continue glucose management -continue hypertension medications. MEETA: January 20 if leg continues to improve. Time-Based Coding :: [TOTAL MINUTES] spent with patient and on the chart (including review of chart, obtaining history, exam, reviewing outside data, placing orders, documenting exam and treatment plan, and counseling patient) on [DATE]. Quality VTE Deep Vein Thrombosis/Pulmonary Embolism Present on Admission: No
--- NOTE | 2025-01-18 10:52 | CM.DPC ---
DCP Cont. Reviewed EMR and team rounds for pt's status updates. Per Hospitalist, pt's leg is still quite red and swollen, will need 1-2 more days of IV antibiotics until she's stable for d/c.
[2025-01-18 11:15] LABS: Hematocrit 29.4 % (36-46); Hemoglobin 10.1 g/dL (12.0-16.0); Mean Corpuscular HGB Conc 34.2 % (30-36); Mean Corpuscular Hemoglobin 28.7 PG (26-34); Mean Corpuscular Volume 83.9 fL (80-100); Platelet Count 377 X10^3/uL (150-400)
[2025-01-18 11:37] LABS: Blood Urea Nitrogen 8 mg/dL (7-17); Calcium 9.2 mg/dL (8.4-10.2); Carbon Dioxide 27 mmol/L (22-32); Chloride 98 mmol/L (98-107); Estimated Glomerular Filt Rate > 60 mL/min (>60); Glucose 244 mg/dL (70-99); HEMOLYSIS < 15 (0-50); Potassium 3.9 mmol/L (3.4-5.1); Sodium 132 mmol/L (137-145)
[2025-01-18] MEDS: INSULIN GLARGINE 100 UNIT/ML 3ML PEN 40 UNIT SUBCUT (17:33)
[2025-01-18 18:56] LABS: MRSA (Nasal) PCR DETECTED (Not Detect)
[2025-01-18] MEDS: ATORVASTATIN 20 MG TABLET PO (21:47)
[2025-01-18] MEDS: CHOLECALCIFEROL (VITAMIN D3) 1,000 UNIT TABLET 1000 UNIT PO (21:47)
[2025-01-18] MEDS: AMLODIPINE 5 MG TABLET 2.5 MG PO (21:52)
[2025-01-19 03:59] LABS: Hematocrit 31.6 % (36-46); Hemoglobin 10.9 g/dL (12.0-16.0); Mean Corpuscular HGB Conc 34.5 % (30-36); Mean Corpuscular Hemoglobin 28.7 PG (26-34); Mean Corpuscular Volume 82.9 fL (80-100); Platelet Count 384 X10^3/uL (150-400)
[2025-01-19 04:08] LABS: Blood Urea Nitrogen 11 mg/dL (7-17); Calcium 9.5 mg/dL (8.4-10.2); Carbon Dioxide 34 mmol/L (22-32); Chloride 96 mmol/L (98-107); Estimated Glomerular Filt Rate > 60 mL/min (>60); Glucose 157 mg/dL (70-99); HEMOLYSIS < 15 (0-50); Potassium 3.6 mmol/L (3.4-5.1); Sodium 134 mmol/L (137-145)
[2025-01-19] MEDS: OXYCODONE IR 5 MG TABLET PO (04:13)
[2025-01-19] MEDS: VANCOMYCIN TROUGH 1 REQUEST MISC (04:14)
[2025-01-19] MEDS: VANCOMYCIN 2,000 MG/400 ML PIGGYBACK 200 MG IV (04:15)
[2025-01-19 05:41] VITALS: O2SAT 97
[2025-01-19] MEDS: PIPERACILLIN/TAZO 3.375 GM in SODIUM CHLORIDE 0.9% 100 ML IV ×3 (06:41→23:33)
[2025-01-19] MEDS: INSULIN LISPRO 100 UNIT/ML 3ML VIAL SUBCUT ×4 (08:24→21:11)
[2025-01-19 08:27] VITALS: BP 159/70; PULSE 103; RESP 26; TEMP 36.5; O2SAT 93
[2025-01-19] MEDS: ENOXAPARIN 40 MG/0.4 ML SYRINGE SUBCUT ×2 (08:30→21:14)
[2025-01-19] MEDS: OXYCODONE IR 10 MG TABLET PO ×4 (08:31→21:13)
--- NOTE | 2025-01-19 10:32 | CM.DPC ---
DCP Cont. Reviewed EMR and team rounds for pt's status updates. Per Hospitalist, pt will need another 1-2 days of IV ABO's before before being medically stable for home d/c. Monitoring for additional needs.
--- NOTE | 2025-01-19 11:52 | P.CONS_ITS ---
History of Present Illness Consult details Date Patient Seen: 01/19/25 Time Patient Seen: 11:30 Chief complaint: Lt leg pain Narrative: The patient is a 59-year-old female with obesity, diabetes, and hypertension who was admitted to the hospital January 16, 2025 for treatment of cellulitis of the left lower extremity. The patient had previously been hospitalized at [facility] but the cellulitis worsened after discharge. She presented with erythema, swelling, and superficial ulcerations of the left lower extremity. The patient denies ever having had any similar problems in the past. She denies any prior history of DVT or vein disorders but has had intermittent swelling of her legs. Symptoms have improved since she was started on IV antibiotic therapy. The patient reports a good appetite and denies having any other recent changes in her overall health. She does not smoke cigarettes. Meds Home Medications and Allergies Home Medications ?Medication ?Instructions ?Recorded ?Confirmed ?Type hydrochlorothiazide 25 mg tablet 25 mg PO QDAY PRN hudson ma ##0 12/20/12 01/16/25 History amlodipine 2.5 mg tablet 2.5 mg PO BEDTIME 01/16/25 0 01/16/25 History atorvastatin 20 mg tablet 20 mg PO BEDTIME 01/16/25 History cholecalciferol (vitamin D3) 25 25 mcg PO BEDTIME 12/2801/16/25 History mcg (1,000 unit) capsule (Vitamin D3) diphenhydramine HCl 25 mg capsule 25 mg PO Q8H PRN all ergies 01/16/25 01/16/25 History (Benadryl) insulin aspart U-100 100 unit/mL 50 unit SUBCUT DIR ECTED 01/16/25 01/16/25 History (3 mL) subcutaneous pen insulin glargine 100 unit/mL (3 50 unit SUBCUT QPM 01/16/25 History mL) subcutaneous pen ketotifen fumarate 0.025 % (0.035 1 drp EYE-BOTH DAILY PRN allergy 01/16/25 01/16/25 History %) eye drops (Allergy Eye symptoms (ketotifen)) Allergies Allergy/AdvReac Type Severity Reaction Status Date / Time bupropion (From Wellbutrin) Allergy Severe Hypotension Verified 01/16/25 14:12 thioridazine (From MELLARIL) Allergy Unknown Verified 01/16/25 14:12 narcotics Allergy Unknown Uncoded 01/16/25 14:12 SULFA Allergy Unknown Uncoded 01/16/25 14:12 Review of Systems Cardiovascular Comments: No chest pain Respiratory Comments: No shortness of breath Musculoskeletal Comments: Intermittent lower extremity swelling Exam Vital Signs (past 8 hours): - 01/19/25 05:41 01/19/25 08:27 Temperature 97.7 F Pulse Rate 103 H Respiratory Rate 26 H Blood Pressure 159/70 H Pulse Oximetry 97 93 Oxygen Delivery Method Room Air Oxygen Flow Rate 0 Oxygen Delivery Method Room Air Oxygen Flow Rate 0 Narrative Exam Narrative: Obese female, alert and oriented, no apparent distress Skin Other: Erythema left lower extremity with circumferential superficial ulcer, mild edema, pedal pulses palpable Objective Labs 01/19/25 03:40 01/19/25 03:40 Labs: Laboratory Results - last 24 hr 01/18/25 01/18/25 01/18/25 16:52 17:40 21:45 WBC RBC Hgb Hct MCV MCH MCHC RDW Plt Count Sodium Potassium Chloride Carbon Dioxide BUN Creatinine Estimated GFR BUN/Creatinine Ratio Glucose POC Whole Bld Glucose 200 H 210 H Calcium Nasal Screen MRSA (PCR) Detected H Vancomycin Trough 01/19/25 01/19/25 03:40 06:56 WBC 4.6 RBC 3.81 L Hgb 10.9 L Hct 31.6 L MCV 82.9 MCH 28.7 MCHC 34.5 RDW 14.9 H Plt Count 384 Sodium 134 L Potassium 3.6 Chloride 96 L Carbon Dioxide 34 H BUN 11 Creatinine 0.85 Estimated GFR > 60 BUN/Creatinine Ratio 12.9 Glucose 157 H POC Whole Bld Glucose 163 H Calcium 9.5 Nasal Screen MRSA (PCR) Vancomycin Trough 6.8 L [facility] Medical History IDDM (insulin dependent diabetes mellitus) Obesity Fatty liver Hypertension Social History household members: family Tobacco & Substance Use Smoking Status: Never smoker Assessment & Plan Assessment and plan (1) Cellulitis of leg, left: Status: Acute (2) Non-pressure chronic ulcer of other part of left lower leg limited to breakdown of skin: Status: Acute (3) Type 2 diabetes mellitus with other skin ulcer: Status: Acute Assessment & Plan narrative: Circumferential superficial ulcers left lower extremity associated with cellulitis, improving with IV antibiotic therapy. Recommend starting daily dressing changes with gentamicin cream and wrapped with Kerlix, keep the leg elevated, follow up at wound center after discharge for further treatment. Time-Based Coding :: [45 MINUTES] spent with patient and on the chart (including review of chart, obtaining history, exam, reviewing outside data, placing orders, documenting exam and treatment plan, and counseling patient) on [01/19/25].
[2025-01-19] MEDS: VANCOMYCIN 1,250 MG/250 ML PIGGYBACK 250 MG IV (15:00)
[2025-01-19] MEDS: ONDANSETRON 4 MG/2 ML INJ IV (16:17)
--- NOTE | 2025-01-19 16:28 | P.PN_ITS ---
Subjective Subjective Date Patient Seen: 01/19/25 Interval history: Chief complaint: Cellulitis of left lower extremity with severe leg pain swelling and erythema History of present illness: 01/16: 59 y/o with PMH of HTN, HLD, IDDM, recent hospitalization at [facility] with pneumonia and LLE cellulitis - on 01/06. Discharged with 10 days of Augmentin for leg cellullitis, finished the course but leg looks worse. Presnts with large, circumferential cellulitis. Not septic. Treated with IVFs and antibiotics and admitted for LLE cellulitis. Hospital course: 01/16-01/18: Patient treated with dressing changes in intravenous antibiotics with improved cellulitis patient evaluated daily 01/19: 4 days of IV antibiotics with significant improvement but not at the point where aspects should be de-escalated at this time patient evaluated by Dr. Damon: Circumferential superficial ulcers left lower extremity associated with cellulitis, improving with IV antibiotic therapy. Recommend starting daily dressing changes with gentamicin cream and wrapped with Kerlix, keep the leg elevated, follow up at wound center after discharge for further treatment. Review of systems: No fever or chills No chest pain palpitations shortness for breath No abdominal pain diarrhea Physical exam: No acute distress HEENT unremarkable No labored respirations Left lower extremity left lower leg has desquamation in circumferential pattern with distal ankle pruning and pinkish cellulitis and proximal calf and knee pinkish with swelling and some pruning as well. Assessment and plan: Cellulitis left lower extremity which seems to be improving with intravenous antibiotics this is a failure of Augmentin therapy seen by wound care * Continue IV antibiotics for 72 hours * Gentamicin cream and wound change * Consider possible pyoderma gangrenosa although this is very rare there is some resemblance in appearance * Continue to keep leg elevated Diabetes type 2 insulin-dependent * Continue insulin Hypertension with suspected increased venous resistance due to obesity. * Discontinue amlodipine and start Isordil 5 mg t.i.d. and increase dosage to remove venous drainage which may help with healing DVT prophylaxis * Subcutaneous heparin Code status: * Full code blue 35 minutes were involved in the evaluation of this patient with direct [id number] contact in evaluation review of history documentation laboratory and imaging studies Exam Vital Signs (past 8 hours): Oxygen Delivery Method Room Air Oxygen Flow Rate 0 Objective Labs 01/19/25 03:40 01/19/25 03:40 Labs: Laboratory Results - last 24 hr 01/18/25 01/18/25 01/18/25 16:52 17:40 21:45 WBC RBC Hgb Hct MCV MCH MCHC RDW Plt Count Sodium Potassium Chloride Carbon Dioxide BUN Creatinine Estimated GFR BUN/Creatinine Ratio Glucose POC Whole Bld Glucose 200 H 210 H Calcium Nasal Screen MRSA (PCR) Detected H Vancomycin Trough 01/19/25 01/19/25 01/19/25 03:40 06:56 12:02 WBC 4.6 RBC 3.81 L Hgb 10.9 L Hct 31.6 L MCV 82.9 MCH 28.7 MCHC 34.5 RDW 14.9 H Plt Count 384 Sodium 134 L Potassium 3.6 Chloride 96 L Carbon Dioxide 34 H BUN 11 Creatinine 0.85 Estimated GFR > 60 BUN/Creatinine Ratio 12.9 Glucose 157 H POC Whole Bld Glucose 163 H 203 H Calcium 9.5 Nasal Screen MRSA (PCR) Vancomycin Trough 6.8 L PFSH Medical History IDDM (insulin dependent diabetes mellitus) Obesity Fatty liver Hypertension Social History household members: family Smoking Status: Never smoker Assessment & Plan Time-Based Coding :: [TOTAL MINUTES] spent with patient and on the chart (including review of chart, obtaining history, exam, reviewing outside data, placing orders, documenting exam and treatment plan, and counseling patient) on [DATE]. Quality VTE Deep Vein Thrombosis/Pulmonary Embolism Present on Admission: No
[2025-01-19] MEDS: GENTAMICIN 0.1% CREAM 30 GM 1 APPLIC TOP (16:51)
[2025-01-19 17:00] VITALS: O2SAT 93
[2025-01-19 20:00] VITALS: BP 158/72; PULSE 98; RESP 17; TEMP 36.4; O2SAT 99
[2025-01-19] MEDS: INSULIN GLARGINE 100 UNIT/ML 3ML PEN 45 UNIT SUBCUT (21:10)
[2025-01-19] MEDS: ATORVASTATIN 20 MG TABLET PO (21:13)
[2025-01-19] MEDS: ISOSORBIDE MONONITRATE ER 30 MG TABLET 15 MG PO (21:13)
[2025-01-19] MEDS: CHOLECALCIFEROL (VITAMIN D3) 1,000 UNIT TABLET 1000 UNIT PO (21:14)
[2025-01-20] MEDS: VANCOMYCIN 1,250 MG/250 ML PIGGYBACK 250 MG IV (04:18)
[2025-01-20 04:59] VITALS: O2SAT 99
[2025-01-20 06:51] LABS: Hematocrit 29.9 % (36-46); Hemoglobin 10.2 g/dL (12.0-16.0); Mean Corpuscular HGB Conc 34.2 % (30-36); Mean Corpuscular Hemoglobin 28.5 PG (26-34); Mean Corpuscular Volume 83.2 fL (80-100); Platelet Count 401 X10^3/uL (150-400)
[2025-01-20] MEDS: PIPERACILLIN/TAZO 3.375 GM in SODIUM CHLORIDE 0.9% 100 ML IV (06:52)
[2025-01-20 07:17] LABS: Blood Urea Nitrogen 13 mg/dL (7-17); Calcium 9.2 mg/dL (8.4-10.2); Carbon Dioxide 30 mmol/L (22-32); Chloride 93 mmol/L (98-107); Estimated Glomerular Filt Rate > 60 mL/min (>60); Glucose 179 mg/dL (70-99); HEMOLYSIS < 15 (0-50); Potassium 3.9 mmol/L (3.4-5.1); Sodium 131 mmol/L (137-145)
[2025-01-20] MEDS: INSULIN LISPRO 100 UNIT/ML 3ML VIAL SUBCUT ×4 (08:23→17:04)
[2025-01-20 09:35] VITALS: BP 130/53; PULSE 102; RESP 21; TEMP 36.7; O2SAT 98
[2025-01-20] MEDS: ISOSORBIDE MONONITRATE ER 30 MG TABLET 15 MG PO ×2 (09:54→20:55)
[2025-01-20] MEDS: OXYCODONE IR 5 MG TABLET PO ×2 (09:54→17:08)
[2025-01-20] MEDS: GENTAMICIN 0.1% CREAM 30 GM 1 APPLIC TOP ×2 (09:55→18:49)
[2025-01-20] MEDS: ENOXAPARIN 40 MG/0.4 ML SYRINGE SUBCUT ×2 (09:55→20:54)
[2025-01-20] MEDS: ONDANSETRON 4 MG/2 ML INJ IV (10:15)
--- NOTE | 2025-01-20 10:57 | CM.DPNOTE ---
Addendum entered by SANDY Maddox 01/20/25 12:16: DCP update: Per hospitalist, will monitor for 1-2 days of continued IV abx before discharge home with PO levaquin. No home infusion referral needed at this time. MAYTE Thurston Original Note: DCP Continued: Reviewed EMR and team rounds for pt?s medical status. Per hospitalist, hoping to discharge pt with home infusion orders to complete 3-4 more days of IV abx. DCP entered room, introduced self and role. Pt states she does not anticipate being able to return to work as soon as this weekend due to how she is feeling but is anxious to return home to be with her dog. DCP discussed hospitalist's plans and coordination for home IV abx, pt states she should be able to manage this but if it is a matter of a few days in the hospital to complete treatment, they are agreeable to this as well. DCP updated hospitalist on above conversation with pt. Plan: Anticipating discharge home 01/20 with son to transport if home IV abx can be coordinated vs. remaining in hospital until IV abx treatment complete. CM Team will continue to follow for coordination of discharge plans. MAYTE Thurston
--- NOTE | 2025-01-20 13:43 | PM.PN.1 ---
Subjective Subjective Date Patient Seen: 01/20/25 Interval history: Chief complaint: Cellulitis of left lower extremity with severe leg pain swelling and erythema History of present illness: 01/16:59 y/o with PMH of HTN, HLD, IDDM, recent hospitalization at [facility] with pneumonia and LLE cellulitis - on 01/06. Discharged with 10 days of Augmentin for leg cellullitis, finished the course but leg looks worse. Presnts with large, circumferential cellulitis. Not septic. Treated with IVFs and antibiotics and admitted for LLE cellulitis. Hospital course: 01/16-01/18: Patient treated with dressing changes in intravenous antibiotics with improved cellulitis patient evaluated daily 01/19: 4 days of IV antibiotics with significant improvement but not at the point where aspects should be de-escalated at this time patient evaluated by Dr. Damon: Circumferential superficial ulcers left lower extremity associated with cellulitis, improving with IV antibiotic therapy. Recommend starting daily dressing changes with gentamicin cream and wrapped with Kerlix, keep the leg elevated, follow up at wound center after discharge for further treatment. Wound Culture: 1. Enterobacter cloacae complex M.I.C. RX --------- --- * Amoxicillin/Clavulanate >=32 R * Aztreonam <=1 S * Cefepime E-test 0.032 S * Cefuroxime 16 I * Gentamicin <=1 S * Levofloxacin <=0.12 S * Tetracycline 2 S * Trimethoprim/Sulfamethoxazole <=20 S 01/20: Still feeling fatigued and malaise with diminished appetite increased leg pain with sitting or standing improved with elevation Review of systems: No fever or chills No chest pain palpitations shortness for breath No abdominal pain diarrhea Physical exam: No acute distress HEENT unremarkable No labored respirations Left lower extremity left lower leg with extensive cellulitis has desquamation in circumferential pattern with distal ankle pruning and pinkish cellulitis and proximal calf and knee pinkish with swelling and some pruning as well. Assessment and plan: Cellulitis left lower extremity which seems to be improving with intravenous antibiotics this is a failure of Augmentin therapy seen by wound care Continue IV antibiotics for 48 hours Gentamicin cream and wound change Consider possible pyoderma gangrenosa although this is very rare there is some resemblance in appearance Continue to keep leg elevated Diabetes type 2 insulin-dependent Continue insulin Hypertension with suspected increased venous resistance due to obesity. Discontinue amlodipine and start Imdur 30 mg b.i.d. and increase dosage to remove venous drainage which may help with healing DVT prophylaxis Subcutaneous heparin Code status: Full code blue 35 minutes were involved in the evaluation of this patient with direct ucxi-ih-[id number] contact in evaluation review of history documentation laboratory and imaging studies Exam Vital Signs (past 8 hours): - 01/20/25 09:35 Temperature 98.1 F Pulse Rate 102 H Respiratory Rate 21 Blood Pressure 130/53 L Pulse Oximetry 98 Oxygen Flow Rate 0 Oxygen Delivery Method Room Air Oxygen Flow Rate 0 Objective Labs 01/20/25 06:12 01/20/25 06:12 Labs: Laboratory Results - last 24 hr 01/19/25 01/19/25 01/20/25 16:26 20:32 06:12 WBC 5.4 RBC 3.59 L Hgb 10.2 L Hct 29.9 L MCV 83.2 MCH 28.5 MCHC 34.2 RDW 14.9 H Plt Count 401 H Sodium 131 L Potassium 3.9 Chloride 93 L Carbon Dioxide 30 BUN 13 Creatinine 0.91 Estimated GFR > 60 BUN/Creatinine Ratio 14.3 Glucose 179 H POC Whole Bld Glucose 231 H 244 H Calcium 9.2 01/20/25 01/20/25 07:28 11:50 WBC RBC Hgb Hct MCV MCH MCHC RDW Plt Count Sodium Potassium Chloride Carbon Dioxide BUN Creatinine Estimated GFR BUN/Creatinine Ratio Glucose POC Whole Bld Glucose 164 H 188 H Calcium PFSH Medical History IDDM (insulin dependent diabetes mellitus) Obesity Fatty liver Hypertension Social History household members: family Smoking Status: Never smoker Assessment & Plan Time-Based Coding :: [TOTAL MINUTES] spent with patient and on the chart (including review of chart, obtaining history, exam, reviewing outside data, placing orders, documenting exam and treatment plan, and counseling patient) on [DATE]. Quality VTE Deep Vein Thrombosis/Pulmonary Embolism Present on Admission: No
--- NOTE | 2025-01-20 13:52 | DI.RAD.S_ITS ---
PROCEDURE: XR CHEST FOR PICC 1V INDICATIONS: picc placement COMPARISON: [facility], , XR CHEST 1V, 01/16/2025, 15:25. FINDINGS: PICC was placed by the intravenous therapy team from the right side. Fluoroscopic spot film demonstrates the tip of PICC projecting to the area of SVC right atrial junction. IMPRESSION: Tip of PICC projects to the area of SVC right atrial junction. Dictated by: Eduardo Dsouza M.D. on 01/20/2025 at 14:31 Approved by: Eduardo Dsouza M.D. on 01/20/2025 at 14:31
[2025-01-20 17:00] VITALS: O2SAT 98
[2025-01-20 19:00] VITALS: BP 136/67; PULSE 96; RESP 16; TEMP 36.5; O2SAT 99
[2025-01-20] MEDS: INSULIN GLARGINE 100 UNIT/ML 3ML PEN 45 UNIT SUBCUT (20:53)
[2025-01-20] MEDS: ATORVASTATIN 20 MG TABLET PO (20:54)
[2025-01-20] MEDS: CHOLECALCIFEROL (VITAMIN D3) 1,000 UNIT TABLET 1000 UNIT PO (20:54)
[2025-01-20] MEDS: OXYCODONE IR 10 MG TABLET PO (22:50)
[2025-01-20] MEDS: diphenhydrAMINE 25 MG TABLET PO (22:56)
--- NOTE | 2025-01-21 05:49 | PM.PN.1 ---
Subjective Subjective Interval history: 59 yo female IDDM2, Class 3 obesity, HTN, HLD, and recent hospitalization at [facility] with pneumonia and LLE cellulitis - on 01/06 (d/c'd w/Augmentin x 10 d) who was admitted w/ongoing LLE cellulitis. Initially on Zosyn, now on Levaquin based on cxs showing enterobacter. Patient reports she is feeling better today than yesterday. She has less pain and was able to ambulate to the bathroom. She does still have significant pain with weight-bearing. Reports normal appetite. No shortness breath. Exam Vital Signs (past 8 hours): Oxygen Delivery Method Room Air Oxygen Flow Rate 0 Narrative Exam Narrative: GEN: Middle-aged female, Alert and oriented x 3, NAD HEENT:NC, Face symmetric CHEST: Respiratory excursions symmetric, CTAB CV: RRR, no M/R/G ABD: Soft, obese, NT/ND, BT present in all 4 quadrants, body habitus limits exam EXTR: warm, well perfused, no C/C/E, left lower extremity reveals diffuse erythema circumferentially from the knee down to the ankle, there is scaling and scabbing in the pretibial area, significant warmth and areas around the scab that are more erythematous compared to the more proximal parts of the leg SKIN: warm and dry, no rash NEURO: Alert and oriented x 3, nonfocal Objective Labs 01/21/25 07:40 01/21/25 07:40 Labs: Laboratory Results - last 24 hr 01/20/25 01/20/25 01/20/25 06:12 07:28 11:50 WBC 5.4 RBC 3.59 L Hgb 10.2 L Hct 29.9 L MCV 83.2 MCH 28.5 MCHC 34.2 RDW 14.9 H Plt Count 401 H Sodium 131 L Potassium 3.9 Chloride 93 L Carbon Dioxide 30 BUN 13 Creatinine 0.91 Estimated GFR > 60 BUN/Creatinine Ratio 14.3 Glucose 179 H POC Whole Bld Glucose 164 H 188 H Calcium 9.2 01/20/25 01/20/25 16:57 20:21 WBC RBC Hgb Hct MCV MCH MCHC RDW Plt Count Sodium Potassium Chloride Carbon Dioxide BUN Creatinine Estimated GFR BUN/Creatinine Ratio Glucose POC Whole Bld Glucose 166 H 168 H Calcium [facility] Medical History IDDM (insulin dependent diabetes mellitus) Obesity Fatty liver Hypertension Social History household members: family Smoking Status: Never smoker Assessment & Plan Assessment & Plan narrative: 1. LLE cellulitis Continues to improve slowly. We will continue to weightbear as able, increase mobility as tolerated. Continue to elevate her leg when she is in bed. Expect care to be an issue upon her return home. Discharge planning working on a safe discharge at this time. 2. DM2 - insulin requiring Blood sugars have been well controlled ranging from 166-188 in the last 24 hours. Continues Lantus 45 units daily with sliding scale 3. Class 3 obesity BMI is 47.9. Would greatly benefit from weight reduction. Her obesity does increase risk of complications from her cellulitis. 4. HTN Overall, blood pressures are reasonably controlled. Continues hydrochlorothiazide and isosorbide. We will restart amlodipine as well 5. Hyponatremia Mild at 132. Will follow. 6. Normocytic anemia Hemoglobin is stable at 10.0. Code status Full Prophylaxis On Lovenox b.i.d. Disposition Pending Time-Based Coding :: [TOTAL MINUTES] spent with patient and on the chart (including review of chart, obtaining history, exam, reviewing outside data, placing orders, documenting exam and treatment plan, and counseling patient) on [DATE]. Quality VTE Deep Vein Thrombosis/Pulmonary Embolism Present on Admission: No
[2025-01-21 08:02] LABS: Ammonia (NH3) < 9 umol/L (9-30)
[2025-01-21 08:03] LABS: Alanine Aminotransferase 16 IU/L (<35); Albumin 3.3 g/dL (3.5-5.0); Albumin Globulin Ratio 0.9 (1.0-2.8); Alkaline Phosphatase 73 U/L (38-126); Blood Urea Nitrogen 14 mg/dL (7-17); Calcium 9.1 mg/dL (8.4-10.2); Carbon Dioxide 34 mmol/L (22-32); Chloride 91 mmol/L (98-107); Estimated Glomerular Filt Rate > 60 mL/min (>60); Globulin 3.5 g/dL (1.7-4.1); Glucose 168 mg/dL (70-99); HEMOLYSIS < 15 (0-50); Potassium 3.7 mmol/L (3.4-5.1); Sodium 132 mmol/L (137-145); Total Protein 6.8 g/dL (6.3-8.2)
[2025-01-21 08:06] LABS: Add Manual Diff / Slide Review NO; Hematocrit 29.5 % (36-46); Hemoglobin 10.0 g/dL (12.0-16.0); Lymphocytes Absolute Auto 1200 /uL (1100-4500); Mean Corpuscular HGB Conc 34.0 % (30-36); Mean Corpuscular Hemoglobin 28.4 PG (26-34); Mean Corpuscular Volume 83.6 fL (80-100); Platelet Count 382 X10^3/uL (150-400)
[2025-01-21] MEDS: ISOSORBIDE MONONITRATE ER 30 MG TABLET 15 MG PO ×2 (08:08→21:06)
[2025-01-21] MEDS: OXYCODONE IR 5 MG TABLET PO ×2 (08:09→14:29)
[2025-01-21] MEDS: INSULIN LISPRO 100 UNIT/ML 3ML VIAL SUBCUT ×6 (08:09→16:39)
[2025-01-21] MEDS: ENOXAPARIN 40 MG/0.4 ML SYRINGE SUBCUT ×2 (08:09→21:07)
[2025-01-21 08:23] VITALS: BP 149/66; PULSE 119; RESP 20; TEMP 36.3; O2SAT 91
[2025-01-21] MEDS: ONDANSETRON 4 MG/2 ML INJ IV (08:36)
[2025-01-21] MEDS: GENTAMICIN 0.1% CREAM 30 GM 1 APPLIC TOP (14:28)
--- NOTE | 2025-01-21 15:11 | CM.DPC ---
DCP Cont: Per MD, pt may be here through the weekend but pending her abx needs and when she can switch to PO but likely will need wound care at d/c for dressing changes. Due to triage needs, made [facility] referral for HH RN to start for wound care based on Vendor Calendar and to confirm if they can accept and then SW will talk to pt bedside. F2F needed still if HH. SANDY Dobbs
[2025-01-21 17:00] VITALS: O2SAT 94
[2025-01-21 19:00] VITALS: BP 113/42; PULSE 97; RESP 16; TEMP 36.9; O2SAT 95
[2025-01-21] MEDS: AMLODIPINE 5 MG TABLET 2.5 MG PO (21:04)
[2025-01-21] MEDS: ATORVASTATIN 20 MG TABLET PO (21:05)
[2025-01-21] MEDS: diphenhydrAMINE 25 MG TABLET PO (21:05)
[2025-01-21] MEDS: CHOLECALCIFEROL (VITAMIN D3) 1,000 UNIT TABLET 1000 UNIT PO (21:06)
[2025-01-21] MEDS: INSULIN GLARGINE 100 UNIT/ML 3ML PEN 45 UNIT SUBCUT (21:07)
[2025-01-22 05:00] VITALS: O2SAT 92
[2025-01-22 06:12] LABS: Add Manual Diff / Slide Review NO; Hematocrit 29.5 % (36-46); Hemoglobin 10.2 g/dL (12.0-16.0); Lymphocytes Absolute Auto 1500 /uL (1100-4500); Mean Corpuscular HGB Conc 34.6 % (30-36); Mean Corpuscular Hemoglobin 28.5 PG (26-34); Mean Corpuscular Volume 82.3 fL (80-100); Platelet Count 342 X10^3/uL (150-400)
[2025-01-22 06:28] LABS: Blood Urea Nitrogen 15 mg/dL (7-17); Calcium 9.6 mg/dL (8.4-10.2); Carbon Dioxide 36 mmol/L (22-32); Chloride 91 mmol/L (98-107); Estimated Glomerular Filt Rate > 60 mL/min (>60); Glucose 152 mg/dL (70-99); Potassium 3.3 mmol/L (3.4-5.1); Sodium 133 mmol/L (137-145)
[2025-01-22 06:31] LABS: HEMOLYSIS 68 (0-50)
[2025-01-22 07:00] VITALS: BP 159/61; PULSE 68; RESP 18; TEMP 36; O2SAT 95
[2025-01-22] MEDS: ISOSORBIDE MONONITRATE ER 30 MG TABLET 15 MG PO ×2 (09:05→20:27)
[2025-01-22] MEDS: ENOXAPARIN 40 MG/0.4 ML SYRINGE SUBCUT ×2 (09:05→20:28)
[2025-01-22] MEDS: INSULIN LISPRO 100 UNIT/ML 3ML VIAL SUBCUT ×6 (09:07→17:27)
[2025-01-22] MEDS: POTASSIUM CHLORIDE 20 MEQ/15 ML UDC 40 MEQ PO (09:17)
--- NOTE | 2025-01-22 12:27 | CM.DPC ---
DCP Home with Wound Care Per MD, pt has made medical progress and may be stable to d/c home today vs tomorrow Mon and recommending ongoing wound care at d/c. NICO met bedside with pt and explained role and she confirms she is agreeable to d/c home when stable and states she was able to get up to the bathroom and ambulate with some leg pain from cellultis but much less painful than on admission. Pt confirms she lives in mobile home with her son and his young family and discussed HH RN for wound care and pt states my son doesn't like people coming into the home since they have a 4 mo baby. Discussed options of making it feel more secure but pt states that her preference is [facility] since Dr. Carroll consulted while pt has been admitted. Pt states she drives and her vehicle is in the parking lot and preference is to drive herself home at d/c, has not been on pain meds or narcotics, and therefore transport to outpt appointments not a barrier. NICO faxed new referral to [facility] and left vm on phone regarding new referral. SANDY Dobbs
--- NOTE | 2025-01-22 16:53 | PM.PN.1 ---
Subjective Subjective Interval history: 59 yo female IDDM2, Class 3 obesity, HTN, HLD, and recent hospitalization at [facility] with pneumonia and LLE cellulitis - on 01/06 (d/c'd w/Augmentin x 10 d) who was admitted w/ongoing LLE cellulitis. Initially on Zosyn, now on Levaquin based on cxs showing enterobacter. Patient reports she is feeling better today than yesterday. She was able to ambulate to the bathroom and take a shower today. She did develop left-sided chest pain this afternoon. She states it seems to come and go. No associated shortness of breath. No diaphoresis. She reports that her leg was more erythematous and painful after her shower. She met with the discharge planners today and advised she would not be able to use home health services as she lives with her son who has an infant and there would not be receptive to have multiple people in the home. Exam Vital Signs (past 8 hours): Oxygen Delivery Method Room Air Oxygen Flow Rate 1 Narrative Exam Narrative: GEN: Middle-aged female, Alert and oriented x 3, NAD HEENT:NC, Face symmetric CHEST: Respiratory excursions symmetric, CTAB CV: RRR, no M/R/G ABD: Soft, obese, NT/ND, BT present in all 4 quadrants, body habitus limits exam EXTR: warm, well perfused, no C/C/E, left lower extremity reveals diffuse erythema circumferentially from the knee down to the ankle, there is scaling and scabbing in the pretibial area, new blistering noted to the mid jarrett, some decreased erythema around the knee and upper calf, but darker erythema around the scabbed aspect of the leg SKIN: warm and dry, no rash NEURO: Alert and oriented x 3, nonfocal Objective Labs 01/22/25 05:42 01/22/25 05:42 Labs: Laboratory Results - last 24 hr 01/21/25 01/22/25 01/22/25 19:27 05:42 11:30 WBC 5.0 RBC 3.59 L Hgb 10.2 L Hct 29.5 L MCV 82.3 MCH 28.5 MCHC 34.6 RDW 15.1 H Plt Count 342 Neut % (Auto) 55.7 Lymph % (Auto) 29.3 Shackelford % (Auto) 12.5 Eos % (Auto) 1.6 L Baso % (Auto) 0.9 Neut # (Auto) 2800 Lymph # (Auto) 1500 Shackelford # (Auto) 600 Eos # (Auto) 100 Baso # (Auto) 0 Sodium 133 L Potassium 3.3 L Chloride 91 L Carbon Dioxide 36 H BUN 15 Creatinine 0.78 Estimated GFR > 60 BUN/Creatinine Ratio 19.2 Glucose 152 H POC Whole Bld Glucose 172 H 176 H Calcium 9.6 PFSH Medical History IDDM (insulin dependent diabetes mellitus) Obesity Fatty liver Hypertension Social History household members: family Smoking Status: Never smoker Assessment & Plan Assessment & Plan narrative: 1. LLE cellulitis Continues to improve slowly. She continues to weightbear as tolerated. She was able to shower today. She does have new blistering noted to the pretibial region. Cultures were positive for Enterobacter cloacae. There is some increased redness around the scabs and blistered area today. However there is some improved clearing to the proximal leg. She remains on IV Levaquin. She will receive her final dose tomorrow.. Continue to elevate her leg when she is in bed. She will follow-up with wound care clinic on an outpatient basis at discharge. 2. DM2 - insulin requiring Blood sugars have been well controlled ranging from 145-176 in the last 24 hours. Continues Lantus 45 units daily with sliding scale 3. Class 3 obesity BMI is 47.9. Would greatly benefit from weight reduction. Her obesity does increase risk of complications from her cellulitis. Discussed with her that she has evidence of venous stasis and likely has chronic lymphedema which predisposed her to skin changes that caused her cellulitis. 4. HTN Overall, blood pressures are reasonably controlled. Continues hydrochlorothiazide, isosorbide, and amlodipine. 5. Hyponatremia Improving at 133 today. 6. Normocytic anemia Hemoglobin is stable at 10.2 7. Hypokalemia Potassium is being repleted today. 8. Left-sided chest pain This does not appear to be cardiac in nature. It may actually be GI in nature as she states she does sometimes have this pain when she needs to have a bowel movement. She is beginning to feel the need for BM as well today. Will continue to monitor. Code status Full Prophylaxis On Lovenox b.i.d. Disposition Anticipate discharge home tomorrow once IV antibiotics are complete Time-Based Coding :: [TOTAL MINUTES] spent with patient and on the chart (including review of chart, obtaining history, exam, reviewing outside data, placing orders, documenting exam and treatment plan, and counseling patient) on [DATE]. Quality VTE Deep Vein Thrombosis/Pulmonary Embolism Present on Admission: No
[2025-01-22 17:00] VITALS: O2SAT 95
[2025-01-22 19:00] VITALS: BP 131/48; PULSE 93; RESP 18; TEMP 36.5; O2SAT 96
[2025-01-22] MEDS: ONDANSETRON 4 MG/2 ML INJ IV (19:39)
[2025-01-22] MEDS: AMLODIPINE 5 MG TABLET 2.5 MG PO (20:27)
[2025-01-22] MEDS: CHOLECALCIFEROL (VITAMIN D3) 1,000 UNIT TABLET 1000 UNIT PO (20:27)
[2025-01-22] MEDS: ATORVASTATIN 20 MG TABLET PO (20:27)
[2025-01-22] MEDS: INSULIN GLARGINE 100 UNIT/ML 3ML PEN 45 UNIT SUBCUT (20:28)
[2025-01-22 21:00] VITALS: O2SAT 96
[2025-01-22] MEDS: diphenhydrAMINE 25 MG TABLET PO (23:43)
[2025-01-23 06:48] LABS: Blood Urea Nitrogen 15 mg/dL (7-17); Calcium 9.8 mg/dL (8.4-10.2); Carbon Dioxide 36 mmol/L (22-32); Chloride 93 mmol/L (98-107); Estimated Glomerular Filt Rate > 60 mL/min (>60); Glucose 191 mg/dL (70-99); HEMOLYSIS < 15 (0-50); Potassium 3.5 mmol/L (3.4-5.1); Sodium 135 mmol/L (137-145)
[2025-01-23] MEDS: POTASSIUM CHLORIDE 20 MEQ TAB 40 MEQ PO (08:44)
[2025-01-23] MEDS: ISOSORBIDE MONONITRATE ER 30 MG TABLET 15 MG PO (08:45)
[2025-01-23] MEDS: ENOXAPARIN 40 MG/0.4 ML SYRINGE SUBCUT (08:45)
[2025-01-23] MEDS: INSULIN LISPRO 100 UNIT/ML 3ML VIAL SUBCUT ×4 (08:47→12:36)
--- NOTE | 2025-01-23 10:34 | PC.NURSE ---
Patient is in good spirits today, plan for her is to discharge today. Her leg is unwrapped. Area is healing and scabbed over to L.jarrett with some redness. She ate well and is talking to dietary.
--- NOTE | 2025-01-23 11:19 | P.DS_ITS ---
History of Present Illness History of Present Illness Date Patient Seen: 01/23/25 Time Patient Seen: 11:19 Chief complaint: Lt leg pain Narrative: Chief complaint: Cellulitis and pain left lower leg with wound culture positive for Enterobacter cloacae History of present illness: 01/16:59 y/o with PMH of HTN, HLD, IDDM, recent hospitalization at [facility] with pneumonia and LLE cellulitis - on 01/06. Discharged with 10 days of Augmentin for leg cellullitis, finished the course but leg looks worse. Presnts with large, circumferential cellulitis. Not septic. Treated with IVFs and antibiotics and admitted for LLE cellulitis. Hospital course: 01/16-01/18: Patient treated with dressing changes in intravenous antibiotics with improved cellulitis patient evaluated daily 01/19: 4 days of IV antibiotics with significant improvement but not at the point where aspects should be de-escalated at this time patient evaluated by Dr. Damon: Circumferential superficial ulcers left lower extremity associated with cellulitis, improving with IV antibiotic therapy. Recommend starting daily dressing changes with gentamicin cream and wrapped with Kerlix, keep the leg elevated, follow up at wound center after discharge for further treatment. Wound Culture: 1. Enterobacter cloacae complex M.I.C. RX --------- --- * Amoxicillin/Clavulanate >=32 R * Aztreonam <=1 S * Cefepime E-test 0.032 S * Cefuroxime 16 I * Gentamicin <=1 S * Levofloxacin <=0.12 S * Tetracycline 2 S * Trimethoprim/Sulfamethoxazole <=20 S 01/20: Still feeling fatigued and malaise with diminished appetite increased leg pain with sitting or standing improved with elevation 01/21 through 01/24: Patient continued to improve was de-escalated to oral Levaquin and doxycycline and discharged home Review of systems: No fever or chills No chest pain palpitations shortness for breath No abdominal pain diarrhea Physical exam: No acute distress HEENT unremarkable No labored respirations Left lower extremity left lower leg with extensive cellulitis has desquamation in circumferential pattern with distal ankle pruning and pinkish cellulitis and proximal calf and knee pinkish with swelling and some pruning as well. Assessment and plan: Cellulitis left lower extremity which seems to be improving with intravenous antibiotics this is a failure of Augmentin therapy seen by wound care now improving de-escalated from IV levofloxacin to oral levofloxacin and doxycycline and discharged home Diabetes type 2 insulin-dependent * Continue insulin * Full code blue 35 minutes were involved in the evaluation of this patient with direct [id number] contact in evaluation review of history documentation laboratory and imaging studies Discharge Providers Provider Date of admission: 01/16/25 19:15 Discharge Date: 01/24/25 Primary care physician: Tamela Harris MD Consults: 01/16/25 22:05 Consult to CUSTOMER OPERATIONS SPECIALIST - School Physical Therapist Routine Comment: School Physical Therapist Consult needed for:: Other reason (Comment) Comment: housing insecurities, states needs to move by June. Lives with son but may need HH or meals on wheels etc. 01/18/25 11:26 Consult to Wound Care Routine Comment: Consulting Provider: [facility] Discharge provider: Chace Lombardi MD Exam Vital Signs (past 8 hours): Oxygen Delivery Method Room Air Oxygen Flow Rate 0 Objective Labs 01/22/25 05:42 01/23/25 06:30 Labs: Laboratory Results - last 24 hr 01/22/25 01/22/25 01/22/25 11:30 16:51 20:07 Sodium Potassium Chloride Carbon Dioxide BUN Creatinine Estimated GFR BUN/Creatinine Ratio Glucose POC Whole Bld Glucose 176 H 164 H 157 H Calcium 01/23/25 06:30 Sodium 135 L Potassium 3.5 Chloride 93 L Carbon Dioxide 36 H BUN 15 Creatinine 0.83 Estimated GFR > 60 BUN/Creatinine Ratio 18.1 Glucose 191 H POC Whole Bld Glucose Calcium 9.8 PFSH Medical History IDDM (insulin dependent diabetes mellitus) Obesity Fatty liver Hypertension Social History household members: family Discharge Plan Discharge Plan Patient Disposition: Home Discharge orders & Medications Prescriptions: New doxycycline hyclate 100 mg capsule 100 mg PO BID Qty: 14 0RF levofloxacin 750 mg tablet 750 mg PO DAILY 7 Days Qty: 7 0RF doxycycline hyclate 100 mg capsule 100 mg PO BID Qty: 14 0RF levofloxacin 750 mg tablet 750 mg PO Q24H Qty: 7 0RF Continued hydrochlorothiazide 25 MG tablet 25 mg PO QDAY PRN (Reason: edema) Qty: 0 atorvastatin 20 mg tablet 20 mg PO BEDTIME amlodipine 2.5 mg tablet 2.5 mg PO BEDTIME cholecalciferol (vitamin D3) [Vitamin D3] 25 mcg (1,000 unit) capsule 25 mcg PO BEDTIME diphenhydramine HCl [Benadryl] 25 mg capsule 25 mg PO Q8H PRN (Reason: allergies) ketotifen fumarate [Allergy Eye (ketotifen)] 0.025 % (0.035 %) drops 1 drp EYE-BOTH DAILY PRN (Reason: allergy symptoms) insulin glargine 100 unit/mL (3 mL) insulin pen 50 unit SUBCUT QPM insulin aspart U-100 100 unit/mL (3 mL) insulin pen 50 unit SUBCUT DIRECTED Patient Comments: takes 50-60 units with 1700 meal and will sometimes take an additional 50 units if has an earlier (lunch time) meal Follow up/Referrals: Tamela Harris MD [Primary Care Provider, Internal Medicine] Skin/Wound/Dressing Care Dressing: Nonstick dry dressing change twice daily and as needed and at wound clinic Visit Report/Discharge Packet Instructions: DI for Cellulitis -- Adult, Cellulitis Stand Alone Forms: Patient Portal/API, Stroke Signs & Symptoms Discharge Data Primary Care Provider: Tamela Harris Quality VTE Deep Vein Thrombosis/Pulmonary Embolism Present on Admission: No
--- NOTE | 2025-01-23 11:38 | CM.DPC ---
DCP Discharge Home Per MD, pt is medically stable to d/c home today after final dose of IV abx and will d/c on po abx and outpt f/u. [place] [facility]. SW called [facility] and confirmed they received pt's referral and will get pt on their schedule for outpt f/u for wound care and will call patient to confirm and alerted that pt will d/c home today. SW met bedside with pt and she remains agreeable to d/c today via her own vehicle in the parking lot (has not been on pain medications/narcotics) but tearful as she states she is stressed about insurance covering her stay at the hospital and having to take time off work for medical care. Provided supportive listening and updated her on [facility] and pt appreciative. Pt again confirms that she declines HH at this time and preference is outpt wound care. Updated RN and pt should be done with her infusion and pwk ready for d/c home around 1330 today. Emily Gamino MSW
== END 2025-01-23 15:34 | disposition home or self-care (01) | DRG 603 ==
LOC: ED 19:14 → AC 19:17
PROVIDERS: Family Medicine; Hospitalist; Admitting Provider Internal Medicine; Emergency Provider Student in an Organized Health Care Education/Training Program; PCP Internal Medicine; Referring Provider Student in an Organized Health Care Education/Training Program; Visit Provider Internal Medicine
DX: L03.116 Cellulitis of left lower limb (principal); E87.1 Hypo-osmolality and hyponatremia; Z68.42 Body mass index [BMI] 45.0-49.9, adult; L97.821 Non-pressure chronic ulcer of other part of left lower leg limited to breakdown of skin; Z16.11 Resistance to penicillins; I10 Essential (primary) hypertension; D64.9 Anemia, unspecified; E66.01 Morbid (severe) obesity due to excess calories; E11.622 Type 2 diabetes mellitus with other skin ulcer; B96.89 Other specified bacterial agents as the cause of diseases classified elsewhere; E66.813 Obesity, class 3; E87.6 Hypokalemia; R07.9 Chest pain, unspecified; I87.8 Other specified disorders of veins; I89.0 Lymphedema, not elsewhere classified; Z79.4 Long term (current) use of insulin
CPT/HCPCS: 36415; 36569; 71045; 73701; 80048; 80053; 80202; 81001; 82140; 82607; 82962; 83540; 83550; 83605; 83690; 84145; 85025; 85027; 85610; 85730; 87040; 87070; 87077; 87186; 87205; 87797; 93005; 96361; 96365; 96366; 96367; 96375; 99233; 99284; A9270; J1171; J1642; J1650; J1815; J1956; J2270; J2405; J2543; J3375; Q9967

== ENCOUNTER 2025-01-23 16:08 | Emergency (ER) | payer OTHER, SELFPAY ==
[2025-01-16 19:59] VITALS: BMI 47.8
--- NOTE | 2025-01-23 16:23 | PC.NURSE ---
Told registration that she was going to leave, had them cut her wrist band off.
--- NOTE | 2025-01-24 13:49 | ED.GENADULT ---
HPI - General Adult General Stated complaint: discharged from upstairs still in pain Lt leg Time Seen by Provider: 01/23/25 16:23 History of Present Illness HPI narrative: never saw patient Related Data Home Medications ?Medication ?Instructions ?Recorded ?Confirmed hydrochlorothiazide 25 mg tablet 25 mg PO QDAY PRN edema ##0 12/20/12 01/16/25 amlodipine 2.5 mg tablet 2.5 mg PO BEDTIME 01/16/25 01/16/25 atorvastatin 20 mg tablet 20 mg PO BEDTIME 01/16/25 01/16/25 cholecalciferol (vitamin D3) 25 25 mcg PO BEDTIME 01/16/25 01/16/25 mcg (1,000 unit) capsule (Vitamin D3) diphenhydramine HCl 25 mg capsule 25 mg PO Q8H PRN allergies 01/16/25 01/16/25 (Benadryl) insulin aspart U-100 100 unit/mL 50 unit SUBCUT DIRECTED 01/16/25 01/16/25 (3 mL) subcutaneous pen insulin glargine 100 unit/mL (3 50 unit SUBCUT QPM 01/16/25 01/16/25 mL) subcutaneous pen ketotifen fumarate 0.025 % (0.035 1 drp EYE-BOTH DAILY PRN allergy 01/16/25 01/16/25 %) eye drops (Allergy Eye symptoms (ketotifen)) Previous Rx's ?Medication ?Instructions ?Recorded doxycycline hyclate 100 mg capsule 100 mg PO BID #14 caps 01/23/25 levofloxacin 750 mg tablet 750 mg PO DAILY 7 days #7 tabs 01/23/25 doxycycline hyclate 100 mg capsule 100 mg PO BID #14 caps 01/24/25 levofloxacin 750 mg tablet 750 mg PO Q24H #7 tabs 01/24/25 Allergies Allergy/AdvReac Type Severity Reaction Status Date / Time bupropion (From Wellbutrin) Allergy Severe Hypotension Verified 01/16/25 14:12 Sulfa (Sulfonamide Allergy Unknown Verified 01/23/25 08:30 Antibiotics) thioridazine (From MELLARIL) Allergy Unknown Verified 01/16/25 14:12 narcotics Allergy Unknown Uncoded 01/16/25 14:12 Patient History Medical History IDDM (insulin dependent diabetes mellitus) Obesity Fatty liver Hypertension Social History household members: family alcohol intake frequency: holidays/special occasions only Discharge Plan Departure Patient Disposition: Left Without Being Seen Clinical Impression: Patient left without being seen Prescriptions: No Action hydrochlorothiazide 25 MG tablet 25 mg PO QDAY PRN (Reason: edema) Qty: 0 atorvastatin 20 mg tablet 20 mg PO BEDTIME amlodipine 2.5 mg tablet 2.5 mg PO BEDTIME cholecalciferol (vitamin D3) [Vitamin D3] 25 mcg (1,000 unit) capsule 25 mcg PO BEDTIME diphenhydramine HCl [Benadryl] 25 mg capsule 25 mg PO Q8H PRN (Reason: allergies) ketotifen fumarate [Allergy Eye (ketotifen)] 0.025 % (0.035 %) drops 1 drp EYE-BOTH DAILY PRN (Reason: allergy symptoms) insulin glargine 100 unit/mL (3 mL) insulin pen 50 unit SUBCUT QPM insulin aspart U-100 100 unit/mL (3 mL) insulin pen 50 unit SUBCUT DIRECTED Patient Comments: takes 50-60 units with 1700 meal and will sometimes take an additional 50 units if has an earlier (lunch time) meal doxycycline hyclate 100 mg capsule 100 mg PO BID Qty: 14 0RF levofloxacin 750 mg tablet 750 mg PO DAILY 7 Days Qty: 7 0RF doxycycline hyclate 100 mg capsule 100 mg PO BID Qty: 14 0RF levofloxacin 750 mg tablet 750 mg PO Q24H Qty: 7 0RF
== END 2025-01-23 16:24 | disposition left against medical advice (07) ==
PROVIDERS: Emergency Provider Family Medicine; PCP Internal Medicine
DX: Z53.21 Procedure and treatment not carried out due to patient leaving prior to being seen by health care provider (principal)

== ENCOUNTER → 2025-02-21 12:04 | Outpatient (CLI) | payer OTHER, SELFPAY ==
[2025-01-16 19:59] VITALS: BMI 47.8
== END ==
PROVIDERS: Family Provider Internal Medicine; PCP Internal Medicine; Referring Provider Internal Medicine; Visit Provider Surgery
DX: S81.811D Laceration without foreign body, right lower leg, subsequent encounter (principal); R60.0 Localized edema; E11.628 Type 2 diabetes mellitus with other skin complications; E66.9 Obesity, unspecified; Z68.42 Body mass index [BMI] 45.0-49.9, adult; I10 Essential (primary) hypertension
CPT/HCPCS: 99212; 99213